=== PATIENT | female | born 1935 ===

== ENCOUNTER 2019-12-15 18:56 | Inpatient (IN) | payer MEDICARE, MEDICAID, OTHER, SELFPAY ==
[2019-12-15 19:07] VITALS: PULSE 120; RESP 20; TEMP 37.2; O2SAT 95
--- NOTE | 2019-12-15 19:21 | DI.RAD.S_ITS ---
PROCEDURE: XR CHEST 1V INDICATIONS: sepsis, respiratory TECHNIQUE: One view of the chest was acquired. COMPARISON: [facility], , CHEST 1 VIEW, 11/20/2017, 7:51. FINDINGS: Surgical changes and devices: Cholecystectomy clips. Lungs and pleura: The lungs are hyperinflated with multifocal patchy right upper lobe alveolar opacities superimposed on diffuse interstitial thickening. Chronic blunting of the right costophrenic angle. No pneumothorax. Mediastinum: Mediastinal contours appear normal. Heart size is normal. Bones and chest wall: No suspicious bony lesions. S-shaped moderate scoliosis. Overlying soft tissues appear unremarkable. IMPRESSION: 1. Findings of chronic interstitial lung disease and multifocal right lung patchy alveolar opacities. 2. There is slight consolidation in the right upper lobe compared to the prior study. Dictated by: Alivia Denson M.D. on 12/15/2019 at 20:32 Approved by: Alivia Denson M.D. on 12/15/2019 at 20:34
[2019-12-15 19:30] VITALS: BP 117/59; PULSE 120; RESP 24; O2SAT 93
[2019-12-15] MEDS: ALBUTEROL/IPRATROPIUM 3 ML AMPUL INH (19:49)
[2019-12-15 19:53] VITALS: PULSE 100; RESP 26; O2SAT 100
--- NOTE | 2019-12-15 19:55 | ED_ITS ---
HPI - SOB/Dyspnea General Chief Complaint: Shortness of Breath/Dyspnea Stated Complaint: difficulty breathing - asthma Time Seen by Provider: 12/15/19 19:10 Source: patient and family Mode of arrival: Wheelchair Limitations: language barrier History of Present Illness HPI Narrative: 84-year-old female nonsmoker with history of asthma presents with her family and a chief complaint of approximately 1 month of worsening respiratory complaints including increased wheezing, shortness of breath cough productive of yellowish sputum and subjective fever and chills. She has had no travel nor exposure to persons of interest for COVID-19. She denies nausea, vomiting or diarrhea. She lives at home with family. Her primary care provider is in [place]. She denies any recent hospitalizations, but was seen at an outside emergency department about 1 month ago. She denies any history of blood clot, cancer or sarcoid. Patient in droplet precautions. Telephonic minute clerk for basic traffic involved, family states this usually doesn't work because she speaks a dialtect of M[place] that is different than the proper [place] used by the translating services. MD Complaint: shortness of breath and cough Onset (ago): day(s) Severity: moderate Consistency/Duration: constant Relieving factors: rest Exacerbating factors: exertion Known history of: asthma Associated symptoms: fever, cough, wheezing and sputum production Treatment prior to arrival: none Related Data Home oxygen amount: none Home Medications Medication Instructions Recorded Confirmed albuterol sulfate [Ventolin HFA] 2 puff INH Q4HP PRN #0 08/19/17 12/16/19 aspirin 81 mg PO QDAY #0 11/20/17 12/16/19 multivitamin [Multiple Vitamins] 1 tab PO QDAY #0 11/20/17 12/16/19 Allergies Allergy/AdvReac Type Severity Reaction Status Date / Time No Known Allergies Allergy Uncoded 01/20/18 12:06 Review of Systems Constitutional Constitutional: Reports chills, Reports fatigue, Reports fever(s), Denies frequent falls, Denies lethargy and Reports weakness Eyes Eyes: Denies change in vision, Denies eye discharge, Denies irritation and Denies loss of vision ENT Ears, Nose, Mouth, and Throat: Denies change in voice, Denies dizziness, Denies neck pain, Denies sore throat and Denies throat swelling Cardiovascular Cardiovascular: Denies chest pain, Denies irregular heart rhythm, Denies lightheadedness, Denies palpitations, Reports dyspnea, Reports dyspnea on exertion and Denies orthopnea Respiratory Respiratory: Reports cough, Reports dyspnea, Reports dyspnea on exertion and Reports wheezing Gastrointestinal Gastrointestinal: Denies abdominal pain, Denies change in bowel habits, Denies diarrhea, Denies nausea and Denies vomiting Genitourinary Genitourinary: Denies hematuria, Denies flank pain, Denies urinary incontinence and Denies urinary urgency Musculoskeletal Musculoskeletal: Denies back pain, Denies muscle weakness, Denies neck pain, Denies numbness and Denies tingling Integumentary/Breasts Skin/Breast: Denies pruritus, Denies erythema, Denies rash and Denies wounds Neurologic Neurologic: Denies behavioral changes, Denies confusion, Denies dizziness, Denies frequent falls, Denies loss of vision, Denies numbness, Denies tingling and Reports weakness Psychiatric Psychiatric: Denies anxiety, Denies behavioral changes, Denies confusion, Denies depression, Denies homicidal ideation and Denies suicidal ideation Endocrine Endocrine: Reports fatigue, Denies flushing and Denies palpitations Hematologic/Lymphatic Hematologic/Lymphatic: Denies easy bruising Allergic/Immunologic Allergic/Immunologic: Denies urticaria, Denies throat swelling and Reports wheezing Patient History Social History Smoking Status: Never smoker Smoking Status: Never smoker alcohol intake frequency: 0-2 drinks per day Substance Use Type: does not use Exam Narrative Exam Narrative: GENERAL: [84] year old patient appears stated age. Well-nou rished, well-developed patient, in mild distress. Frequent cough, increased work of breathing HEAD: Atraumatic. Normocephalic. EYES: Pupils equal round and reactive. Extraocular motions intact. No scleral icterus. No injection or drainage. ENT: Nose without bleeding, purulent drainage. Throat without erythema, tonsillar hypertrophy or exudate. Airway patent. NECK: Trachea midline. Non tender CARDIOVASCULAR: Regular rate and rhythm without murmurs, gallops, or rubs. RESPIRATORY: Decreased breath sounds bilaterally with prolonged expiratory phase, bronchospastic cough no obvious rales or rhonchi GASTROINTESTINAL: Abdomen soft, non-tender, nondistended. EXTREMITIES: No edema or joint tenderness. BACK: Nontender without deformity or crepitance. No flank tenderness. NEURO: AOx3. SKIN: No rash or erythema of visible areas Initial Vital Signs Initial Vital Signs: Vital Signs Temperature 99 F 12/15/19 19:07 Pulse Rate 120 H 12/15/19 19:07 Respiratory Rate 20 12/15/19 19:07 Pulse Oximetry 95 12/15/19 19:07 Course Course Course Narrative: I've had extensive discussion (28minutes) at bedside with patient, family, and minute clerk for basic traffic. Patient denies classic risks for PE such as travel, injury, surgeries, cancer, hx of clot. She has lived in the [place] since 1998. 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 Her most recent trip was in 2018. Call to Pulmonary / Critical Care at [facility]. No need for transfer at this time. Not candidate for intervention for PE. Recommends treatment of pneumonia, PE with anticoagulation and recontact if needed. Orders Ordered: ED Orders 12/15/19 19:21 XR chest 1V Stat 12/15/19 20:00 Blood Culture Stat Complete Blood Count AUTO DIFF Stat Comprehensive Metabolic Panel Stat D Dimer Stat Influenza A & B (PCR) Stat Lactate (Lactic Acid) Stat NT-proBNP (BNP-Adult 18+) Stat Procalcitonin Stat Troponin & CK Cardiac Panel Stat 12/15/19 21:19 CT angio chest PE protocol Stat 12/15/19 21:45 Sputum Culture Stat 12/15/19 22:10 Urine Culture Stat Urine Microscopic Stat 12/15/19 22:19 Arterial Blood Gas Stat Acetaminophen (Tylenol) 650 mg PO Q6HR PRN PRN Reason: Fever Albuterol (Ventolin) 2.5 mg INH [id number] PRN PRN Reason: Shortness Of Breath Or Wheezing Albuterol/Ipratropium (Duoneb) 3 ml INH RTBID ELIZABETH Bisacodyl (Dulcolax) 10 mg NM DAILY PRN PRN Reason: Constipation Docusate Sodium (Colace) 100 mg PO BID PRN PRN Reason: Constipation Enoxaparin Sodium (Lovenox) 60 mg SUBCUT BID ELIZABETH Sodium Chloride (Normal Saline 0.9%) 1,000 mls @ 75 mls/hr IV CONT ELIZABETH Azithromycin 500 mg/ Dextrose 250 mls @ 250 mls/hr IV Q24H ELIZABETH Stop: 12/17/19 21:01 Ceftriaxone Sodium/Dextrose (Rocephin) 2 gm in 50 mls @ 100 mls/hr IV Q24H [facility] Magnesium Hydroxide (Milk Of Magnesia) 30 ml PO BID PRN PRN Reason: Heartburn Methylprednisolone (Solu-Medrol 125 Mg Vial) 80 mg IV Q8H [facility] Naloxone HCl (Narcan) 0.2 mg IV Q2MIN PRN PRN Reason: Opiate Reversal Discontinued Medications Albuterol/Ipratropium (Duoneb) 3 ml INH NOW ONE Stop: 12/15/19 19:25 Last Admin: 12/15/19 19:49 Dose: 3 ml Documented by: DAVE Enoxaparin Sodium (Lovenox) 65 mg 1 mg/kg (65 mg) SUBCUT NOW ONE Stop: 12/15/19 22:47 Last Admin: 12/15/19 23:38 Dose: 65 mg Documented by: YOUSIF Sodium Chloride (Normal Saline 0.9%) 1,877.88 mls @ 625.96 mls/hr 30 ml/kg infuse over 3 hr (1877.88 ml) IV NOW ONE Stop: 12/15/19 22:20 Last Infusion: 12/15/19 23:43 Dose: 0 mls/hr Documented by: Admin: 12/15/19 20:17 Dose: 625.96 mls/hr Documented by: YOUSIF Ceftriaxone Sodium/Dextrose (Rocephin) 2 gm in 50 mls @ 100 mls/hr IV NOW ONE Stop: 12/15/19 19:50 Last Infusion: 12/15/19 20:50 Dose: 0 mls/hr Documented by: Admin: 12/15/19 20:18 Dose: 100 mls/hr Documented by: YOUSIF Ceftriaxone Sodium/Dextrose (Rocephin) 1 gm in 50 mls @ 100 mls/hr IV NOW ONE Stop: 12/15/19 21:49 Last Admin: 12/15/19 23:38 Dose: Not Given Documented by: YOUSIF Azithromycin 500 mg/ Dextrose 250 mls @ 250 mls/hr IV NOW ONE Stop: 12/15/19 21:21 Last Infusion: 12/15/19 23:44 Dose: 0 mls/hr Documented by: Admin: 12/15/19 22:25 Dose: 250 mls/hr Documented by: YOUSIF Methylprednisolone (Solu-Medrol 125 Mg Vial) 125 mg IV NOW ONE Stop: 12/15/19 19:25 Last Admin: 12/15/19 20:17 Dose: 125 mg Documented by: YOUSIF Vital Signs Vital signs: Vital Signs - 8 hr 12/15/19 19:07 12/15/19 19:30 12/15/19 19:53 Temperature 99 F Pulse Rate 120 H 120 H 100 H Respiratory Rate 20 24 26 H Blood Pressure [Left Arm] 117/59 L Pulse Oximetry 95 93 100 12/15/19 23:32 12/16/19 00:06 Temperature Pulse Rate 109 H 108 H Respiratory Rate 24 23 Blood Pressure [Left Arm] 114/56 L 114/57 L Pulse Oximetry 94 92 MDM - SOB/Dyspnea Lab Data Result diagrams: 12/15/19 20:00 12/15/19 20:00 Labs: Lab Results 12/15/19 12/15/19 12/15/19 Range/Units 20:00 20:00 20:00 WBC 12.8 H (4.5-11.0) X10^3/uL RBC 3.16 L (4.0-5.2) X10^6/uL Hgb 9.3 L (12.0-16.0) g/dL Hct 27.1 L (36-46) % MCV 85.8 (80-100) fL MCH 29.4 (26-34) PG MCHC 34.2 (30-36) % RDW 14.2 (11.6-14.8) % Plt Count 448 H (150-400) X10^3/uL Neut % (Auto) 57.9 (50-75) % Lymph % (Auto) 21.8 L (25-40) % [place] % (Auto) 14.1 H (3-14) % Eos % (Auto) 5.4 H (2-4) % Baso % (Auto) 0.8 (0-2) % Neut # (Auto) 7400 H (9511-2417) /uL Lymph # (Auto) 2800 (9757-9765) /uL [place] # (Auto) 1800 H (0-900) /uL Eos # (Auto) 700 H (0-450) /uL Baso # (Auto) 100 (0-100) /uL D-Dimer (<230) ng/mL ABG pH (7.35-7.45) ABG pCO2 (35-45) mmHg ABG pO2 (80-100) mmHg ABG HCO3 (22-26) mmol/L ABG Total CO2 (21-31) mmol/L ABG O2 Saturation (95-100) % ABG Base Excess (-2-2) mmol/L FiO2 Sodium 131 L (137-145) mmol/L Potassium 4.0 (3.4-5.1) mmol/L Chloride 94 L (98-107) mmol/L Carbon Dioxide 29 (22-32) mmol/L BUN 32 H (7-17) mg/dL Creatinine 1.40 H (0.52-1.04) mg/dL Estimated GFR 36.0 L (>60) mL/min BUN/Creatinine Ratio 22.9 H (6-22) Glucose 133 H (80-110) mg/dL Lactate (0.7-2.1) mmol/L Calcium 9.1 (8.4-10.2) mg/dL Total Bilirubin 0.2 (0.2-1.3) mg/dL AST 32 (14-36) IU/L ALT 32 (<35) IU/L Alkaline Phosphatase 85 (38-126) U/L Total Creatine Kinase (30-135) U/L CK-MB (CK-2) CK-MB (CK-2) Rel Index Troponin I (0.01-0.034) ng/mL NT-Pro-B Natriuret Pep (<450) pg/mL Total Protein 7.3 (6.3-8.2) g/dL Albumin 3.8 (3.5-5.0) g/dL Globulin 3.5 (1.7-4.1) g/dL Albumin/Globulin Ratio 1.1 (1.0-2.8) Procalcitonin < 0.05 (<0.5) ng/mL Urine RBC (0-5/HPF) Urine WBC (0-5/HPF) Ur Squamous Epith Cells (0-5/HPF) Ur Transition Epith Cell (0-5/HPF) Urine Bacteria (None) Hyaline Casts (None) Ur Culture Indicated? Influenza A (RT-PCR) (NEGATIVE) Influenza B (RT-PCR) (NEGATIVE) 12/15/19 12/15/19 12/15/19 Range/Units 20:00 20:00 20:00 WBC (4.5-11.0) X10^3/uL RBC (4.0-5.2) X10^6/uL Hgb (12.0-16.0) g/dL Hct (36-46) % MCV (80-100) fL MCH (26-34) PG MCHC (30-36) % RDW (11.6-14.8) % Plt Count (150-400) X10^3/uL Neut % (Auto) (50-75) % Lymph % (Auto) (25-40) % [place] % (Auto) (3-14) % Eos % (Auto) (2-4) % Baso % (Auto) (0-2) % Neut # (Auto) (8090-7935) /uL Lymph # (Auto) (1640-6766) /uL [place] # (Auto) (0-900) /uL Eos # (Auto) (0-450) /uL Baso # (Auto) (0-100) /uL D-Dimer 806 H (<230) ng/mL ABG pH (7.35-7.45) ABG pCO2 (35-45) mmHg ABG pO2 (80-100) mmHg ABG HCO3 (22-26) mmol/L ABG Total CO2 (21-31) mmol/L ABG O2 Saturation (95-100) % ABG Base Excess (-2-2) mmol/L FiO2 Sodium (137-145) mmol/L Potassium (3.4-5.1) mmol/L Chloride (98-107) mmol/L Carbon Dioxide (22-32) mmol/L BUN (7-17) mg/dL Creatinine (0.52-1.04) mg/dL Estimated GFR (>60) mL/min BUN/Creatinine Ratio (6-22) Glucose (80-110) mg/dL Lactate 1.1 (0.7-2.1) mmol/L Calcium (8.4-10.2) mg/dL Total Bilirubin (0.2-1.3) mg/dL AST (14-36) IU/L ALT (<35) IU/L Alkaline Phosphatase (38-126) U/L Total Creatine Kinase (30-135) U/L CK-MB (CK-2) CK-MB (CK-2) Rel Index Troponin I (0.01-0.034) ng/mL NT-Pro-B Natriuret Pep (<450) pg/mL Total Protein (6.3-8.2) g/dL Albumin (3.5-5.0) g/dL Globulin (1.7-4.1) g/dL Albumin/Globulin Ratio (1.0-2.8) Procalcitonin (<0.5) ng/mL Urine RBC (0-5/HPF) Urine WBC (0-5/HPF) Ur Squamous Epith Cells (0-5/HPF) Ur Transition Epith Cell (0-5/HPF) Urine Bacteria (None) Hyaline Casts (None) Ur Culture Indicated? Influenza A (RT-PCR) Flu a negative (NEGATIVE) Influenza B (RT-PCR) Flu b negative (NEGATIVE) 12/15/19 12/15/19 12/15/19 Range/Units 20:00 22:10 22:19 WBC (4.5-11.0) X10^3/uL RBC (4.0-5.2) X10^6/uL Hgb (12.0-16.0) g/dL Hct (36-46) % MCV (80-100) fL MCH (26-34) PG MCHC (30-36) % RDW (11.6-14.8) % Plt Count (150-400) X10^3/uL Neut % (Auto) (50-75) % Lymph % (Auto) (25-40) % [place] % (Auto) (3-14) % Eos % (Auto) (2-4) % Baso % (Auto) (0-2) % Neut # (Auto) (6097-4541) /uL Lymph # (Auto) (1101-6516) /uL [place] # (Auto) (0-900) /uL Eos # (Auto) (0-450) /uL Baso # (Auto) (0-100) /uL D-Dimer (<230) ng/mL ABG pH 7.36 (7.35-7.45) ABG pCO2 37.2 (35-45) mmHg ABG pO2 63 L (80-100) mmHg ABG HCO3 21 L (22-26) mmol/L ABG Total CO2 22 (21-31) mmol/L ABG O2 Saturation 91 L (95-100) % ABG Base Excess -5.0 L (-2-2) mmol/L FiO2 21 Sodium (137-145) mmol/L Potassium (3.4-5.1) mmol/L Chloride (98-107) mmol/L Carbon Dioxide (22-32) mmol/L BUN (7-17) mg/dL Creatinine (0.52-1.04) mg/dL Estimated GFR (>60) mL/min BUN/Creatinine Ratio (6-22) Glucose (80-110) mg/dL Lactate (0.7-2.1) mmol/L Calcium (8.4-10.2) mg/dL Total Bilirubin (0.2-1.3) mg/dL AST (14-36) IU/L ALT (<35) IU/L Alkaline Phosphatase (38-126) U/L Total Creatine Kinase 25 L (30-135) U/L CK-MB (CK-2) TNP CK-MB (CK-2) Rel Index TNP Troponin I 0.020 (0.01-0.034) ng/mL NT-Pro-B Natriuret Pep 501 H (<450) pg/mL Total Protein (6.3-8.2) g/dL Albumin (3.5-5.0) g/dL Globulin (1.7-4.1) g/dL Albumin/Globulin Ratio (1.0-2.8) Procalcitonin (<0.5) ng/mL Urine RBC 0-1/hpf (0-5/HPF) Urine WBC 1-5/hpf (0-5/HPF) Ur Squamous Epith Cells 0-1 /hpf (0-5/HPF) Ur Transition Epith Cell 0-1/hpf (0-5/HPF) Urine Bacteria Occasional (0-1) (None) Hyaline Casts 5-10/lpf (None) Ur Culture Indicated? Specimen cultured Influenza A (RT-PCR) (NEGATIVE) Influenza B (RT-PCR) (NEGATIVE) Urine Dip Bedside Urine Glucose Negative Bedside Urine Bilirubin - Negative Bedside Urine Ketone - Negative Urine Specific [place] 1.015 Bedside Urine Occult Blood - Negative Bedside Urine pH 6.0 Bedside Urine Protein - Negative Bedside Urine Urobilinogen - Negative Bedside Urine Nitrite - Negative Bedside Urine Leukocytes - Negative Esterase Discharge Plan Departure Patient Disposition: Admitted As Inpatient Clinical Impression: Chronic interstitial lung disease Pulmonary embolism Qualifiers: Pulmonary embolism type: other Chronicity: acute Acute cor pulmonale presence: without acute cor pulmonale Qualified Code(s): I26.99 - Other pulmonary embolism without acute cor pulmonale Sepsis with acute hypoxic respiratory failure Qualifiers: Sepsis type: sepsis due to unspecified organism Severe sepsis shock status: without septic shock Qualified Code(s): A41.9 - Sepsis, unspecified organism Admit Date/Time: 12/16/19 00:34 Admit Provider: Laz Chandra
[2019-12-15 20:15] LABS: Add Manual Diff / Slide Review NO; Basophils Absolute Auto 100 /uL (0-100); Basophils Percent Auto 0.8 % (0-2); Eosinophils Absolute Auto 700 /uL (0-450); Eosinophils Percent Auto 5.4 % (2-4); Hematocrit 27.1 % (36-46); Hemoglobin 9.3 g/dL (12.0-16.0); Lymphocytes Absolute Auto 2800 /uL (1100-4500); Lymphocytes Percent Auto 21.8 % (25-40); Mean Corpuscular HGB Conc 34.2 % (30-36); Mean Corpuscular Hemoglobin 29.4 PG (26-34); Mean Corpuscular Volume 85.8 fL (80-100); Monocytes Absolute Auto 1800 /uL (0-900); Monocytes Percent Auto 14.1 % (3-14); Neutrophils Absolute Auto 7400 /uL (1500-7000); Neutrophils Percent Auto 57.9 % (50-75); Platelet Count 448 X10^3/uL (150-400); Red Blood Cell Count 3.16 X10^6/uL (4.0-5.2); Red Cell Distribution Width 14.2 % (11.6-14.8); White Blood Cell Count 12.8 X10^3/uL (4.5-11.0)
[2019-12-15] MEDS: methylPREDNISolone 125 MG/2 ML VIAL IV (20:17)
[2019-12-15] MEDS: SODIUM CHLORIDE 0.9% 1,877.88 ML 625.96 ML IV (20:17)
[2019-12-15] MEDS: CEFTRIAXONE 2 GM/50 ML FROZ.PIGGY IV (20:18)
[2019-12-15 20:25] LABS: D Dimer 806 ng/mL (<230)
[2019-12-15 20:30] LABS: Lactate (Lactic Acid) 1.1 mmol/L (0.7-2.1)
[2019-12-15 20:31] LABS: Alanine Aminotransferase 32 IU/L (<35); Albumin 3.8 g/dL (3.5-5.0); Albumin Globulin Ratio 1.1 (1.0-2.8); Alkaline Phosphatase 85 U/L (38-126); Aspartate Aminotransferase 32 IU/L (14-36); BUN Creatinine Ratio 22.9 (6-22); Bilirubin Total 0.2 mg/dL (0.2-1.3); Blood Urea Nitrogen 32 mg/dL (7-17); Calcium 9.1 mg/dL (8.4-10.2); Carbon Dioxide 29 mmol/L (22-32); Chloride 94 mmol/L (98-107); Globulin 3.5 g/dL (1.7-4.1); Glucose 133 mg/dL (80-110); HEMOLYSIS < 15 (0-50); Sodium 131 mmol/L (137-145); Total Protein 7.3 g/dL (6.3-8.2)
[2019-12-15 20:45] LABS: Influenza A - CEPHEID Flu A NEGATIVE (NEGATIVE); Influenza B - CEPHEID Flu B NEGATIVE (NEGATIVE)
[2019-12-15 20:48] LABS: Procalcitonin < 0.05 ng/mL (<0.5)
--- NOTE | 2019-12-15 21:19 | DI.CT.S_ITS ---
PROCEDURE: CT ANGIO CHEST PE PROTOCOL INDICATIONS: SOB, dyspnea, cough, critical D dimer TECHNIQUE: After the administration of intravenous contrast, 2 mm thick sections acquired from the pulmonary apices to the posterior costophrenic angles. 3-dimensional maximum intensity projection (MIP) coronal and sagittal reformats were then acquired through the thorax. For radiation dose reduction, the following was used: automated exposure control, adjustment of mA and/or kV according to patient size. COMPARISON: None. FINDINGS: Image quality: Excellent. Pulmonary arteries: Pulmonary arteries are normal in size. There is acute filling defect in the right lateral basal segment pulmonary artery extending into subsegmental branches. Additionally, filling defect within the left anterior basal segmental pulmonary artery also extending into subsegmental branches is present. Overall quadrant and is estimated to be a mild to moderate. Lungs and pleura: Multifocal bilateral patchy, peripheral irregular alveolar opacities, traction bronchiectasis, superimposed on a background of diffuse reticulation is present. Subpleural honeycombing at the right middle and lower lobe periphery at the lung base. Irregular reticulonodular pattern with small consolidation in the lingula and left posterior lung base. No pleural effusion or pneumothorax. Mediastinum: Normal heart size with mild coronary and mitral annular calcification. No intraventricular septal bowing. Small pericardial effusion present. There is bulky mediastinal adenopathy, some of which demonstrates coarse calcifications. Calcified and noncalcified bilateral hilar adenopathy, left more extensive than right. Small to moderate size hiatal hernia present. Bones and chest wall: No suspicious bony lesions. Ribs and thoracic spine appear intact throughout. Thyroid gland is normal. No axillary or supraclavicular adenopathy. Abdomen: Visualized upper abdominal solid organs appear normal in the early arterial phase of enhancement. IMPRESSION: 1. Bilateral pulmonary emboli superimposed on a background of chronic appearing interstitial lung disease. Overall clot burden is mild to moderate. There is no evidence of recurrent strain. 2. Diffuse interstitial lung disease with the appearance of sarcoidosis or usual interstitial pneumonitis. 3. Bulky mediastinal and hilar adenopathy, some with calcification this supports the possibility of sarcoidosis. Other exposures to granulomatous disease, fungal disease, or asbestosis may have this appearance. 4. Moderate size hiatal hernia. 5. Small pericardial effusion. 6. Discussed with Dr. Beck in the emergency room at 2245 hrs. Dictated by: Alivia Denson M.D. on 12/15/2019 at 22:36 Approved by: Alivia Denson M.D. on 12/15/2019 at 22:52
[2019-12-15 21:38] LABS: Creatine Kinase 25 U/L (30-135)
[2019-12-15 21:51] LABS: NT-proBNP (BNP-Adult 18+) 501 pg/mL (<450)
[2019-12-15] MEDS: AZITHROMYCIN 500 MG in DEXTROSE 5% IN WATER 250 ML IV (22:25)
[2019-12-15 22:26] LABS: HCO3 ABG 21 mmol/L (22-26); PCO2 ABG 37.2 mmHg (35-45); PO2 ABG 63 mmHg (80-100); pH ABG 7.36 (7.35-7.45)
[2019-12-15 22:27] LABS: Fractionated Inspired Oxygen 21; Oxygen Saturation ABG 91 % (95-100); TCO2 ABG 22 mmol/L (21-31)
[2019-12-15 22:35] LABS: Bacteria Urine Occasional (0-1); Culture Indicated Urine Specimen Cultured; RBC Urine 0-1/HPF (0-5/HPF); Squamous Epithelial Cell Urine 0-1 /HPF (0-5/HPF); Transitional Epi Cells Urine 0-1/HPF (0-5/HPF); WBC Urine 1-5/HPF (0-5/HPF)
[2019-12-15 22:36] LABS: Hyaline Casts Urine 5-10/LPF
[2019-12-15 23:32] VITALS: BP 114/56; PULSE 109; RESP 24; O2SAT 94
[2019-12-15] MEDS: ENOXAPARIN 100 MG/ML SYRINGE 65 MG SUBCUT (23:38)
[2019-12-16] VITALS (20 sets, daily range): BP systolic 83–137; BP diastolic 47–72; PULSE 70–141; RESP 16–33; TEMP 35.8–36.9; O2SAT 91–100; BMI 26.9; BMI 20.4
--- NOTE | 2019-12-16 01:14 | PM.HP.1 ---
History of Present Illness History of Present Illness Date Patient Seen: 12/16/19 Time Patient Seen: 01:30 Chief complaint: difficulty breathing - asthma Narrative: Ms.Surjit Velasquez is an 84-year-old [place] female with a history significant for asthma and a history of having tuberculosis that has been treated and cleared presents to the hospital with progressive shortness of breath. History is difficult due to language barrier, telephonic manager commodities used in the emergency department catheter information which is impeded as the patient speaks a dialtect of Mello, not formal Mello. Family is at bedside to assist with patient interview. Reportedly the patient has had difficulty breathing for 1 month. She was seen 1 month ago at the emergency department at [facility] and released. The patient continued to have shortness of breath that became progressive and associated with chest pain with deep inspiration. She has a positive cough productive for yellow sputum. Family also notes that the patient had an episode nausea vomiting with subjective fevers. On pharmacy review the patient has had multiple episodes of 5 day course of prednisone has had a course of Levaquin and routinely uses ProAir inhaler. The patient has had no travel nor exposure to CoVID-19. The patient denies headaches or dizziness has sustained no falls. She has no nasal congestion or sore throat. She has pleuritic chest pain and had shortness of breath as above. She denies abdominal pain but did have episode of nausea vomiting today. Per family there is no change bowel or bladder habits. Patient is sedentary but no history of cancer, travel or long trips. Upon arrival to the ER the patient is afebrile with temperature of 99? degrees. She has a heart rate of 120 blood pressure 117/59, respirations of 24 saturating 95% on room air. CTs obtained which finds: Acute filling defect in the right lateral basal segment pulmonary artery extending into subsegmental branches, filling defect within the left anterior basal segmental pulmonary artery also extending into subsegmental branches is present. Overall clot burden is described as mild to moderate. Radiologist further notes no ventricular strain, sarcoidosis versus interstitial pneumonitis, bulky mediastinal and hilar adenopathy with calcification, hiatal hernia and small pericardial effusion. Chest x-ray reveals fFindings of chronic interstitial lung disease and multifocal right lung patchy alveolar opacities with slight consolidation in the right upper lobe. On ABG the patient has a pH of 7.36, pCO2 of 37.2, PO2 of 63, bicarb 21 with a base deficit of -5 on 21% FiO2. On laboratory analysis the patient's elevated white count of 12.8, hemoglobin 9.3 and hematocrit of 27.1 and platelets 448. She has a low sodium at 131 with a potassium 4.0, her BUN is 32 and creatinine is 1.4. Her nonfasting glucose is 133. She has elevated D-dimer at 806. Her procalcitonin is negative at 0 point 0 5, lactic acid is 1.1. Her total CK is low 25 with a troponin 0.020 and has mildly elevated proBNP of 501. Your treatment included normal saline per sepsis protocol at 30 mL per kg bolus, azithromycin, ceftriaxone and methylprednisolone. Patient received Lovenox 1 milligram/kilogram. The patient is admitted to the medicine service for bilateral PE, exacerbation of asthma pneumonia. Patient History Medical History (Updated 12/16/19 @ 05:48 by LIVE Armendariz) Asthma (Acute) History of pneumonia (Acute) Surgical History (Updated 12/16/19 @ 05:48 by LIVE Armendariz) History of cholecystectomy (Acute) Family & Social History Safety & Behavioral: Feels Safe in Current Yes Environment Been Physically Hurt or No Threatened By a Person Tobacco & Substance use: Smoking Status Never smoker alcohol intake frequency 0-2 drinks per day Substance Use Type does not use Comment: The patient lives in a single family home with a multi generation all family and has been for over 50 years. Family history is difficult to obtain however the patient's sister had cancer but unknown type, no family history of diabetes or heart disease. Smoking: The patient has never smoked or used tobacco products. Alcohol: Patient does not consume alcoholic beverages. Substance use: The patient denies recreation pharmaceuticals, herbal or cannabis products. Advanced directives: Patient does not have an formal advanced directive but indicates her desire that she wants to live and will be FULL CODE. She does not designate a single surrogate decision maker but indicates family are her advocates. Meds Home Medications and Allergies Home Medications Medication Instructions Recorded Confirmed Type albuterol sulfate [Ventolin HFA] 2 puff INH Q4HP PRN #0 08/19/17 12/16/19 History aspirin 81 mg PO QDAY #0 11/20/17 12/16/19 History multivitamin [Multiple Vitamins] 1 tab PO QDAY #0 11/20/17 12/16/19 History Allergies Allergy/AdvReac Type Severity Reaction Status Date / Time No Known Allergies Allergy Uncoded 01/20/18 12:06 Review of Systems Review of Systems ROS: Yes All systems reviewed with the patient and are negative except as otherwise documented Exam Vital Signs (past 8 hours): - 12/15/19 19:07 12/15/19 19:30 12/15/19 19:53 Temperature 99 F Pulse Rate 120 H 120 H 100 H Respiratory Rate 20 24 26 H Blood Pressure [Left Arm] 117/59 L Pulse Oximetry 95 93 100 12/15/19 23:32 12/16/19 00:06 Temperature Pulse Rate 109 H 108 H Respiratory Rate 24 23 Blood Pressure [Left Arm] 114/56 L 114/57 L Pulse Oximetry 94 92 Oxygen Delivery Method Room Air Narrative Exam Narrative: GENERAL APPEARANCE: well developed, frail-appearing 84-year-old female in no acute distress. HEENT: Normocephalic, PERRLA, conjunctiva clear, sclerae are anicteric, no rhinorrhea, mucous membranes are moist. NECK/THYROID: neck supple, no JVD, no thyromegaly, trachea midline. LYMPH NODES: no cervical or supraclavicular lymphadenopathy. SKIN: [place], warm and dry, no visible lesions, rashes, ulcerations or petechiae. HEART: regular rate and rhythm, S1-S2, subtle systolic murmur, no rubs or gallops, brisk capillary refill, 1+ bilateral lower extremity edema LUNGS: Patient with right upper inspiratory expiratory wheezes, left expiratory wheezes, central coarseness clearing with cough and right basilar crackles, marked wheezing with cough CHEST: Symmetrical movement, no accessory muscle use, shallow tidal volume. ABDOMEN: Soft, dull to percussion, no abdominal tenderness, no guarding or peritoneal signs, no organomegaly, active bowel tones. BACK: Normal curvature, nontender to palpation, no CVA tenderness on percussion EXTREMITIES: moves all extremities, strength is 5/5 and symmetrical, no arm or calf tenderness, negative Echevarria sign.. NEUROLOGIC: AAO x4, no focal neurologic deficits, cranial nerves II-XII grossly intact, decreased sensation bilateral feet, hearing grossly normal to speech. PSYCH: Cooperative, stable behavior Objective Labs Result Diagrams: 12/15/19 20:00 12/15/19 20:00 Labs: Laboratory Results - last 24 hr 12/15/19 12/15/19 12/15/19 20:00 20:00 20:00 WBC 12.8 H RBC 3.16 L Hgb 9.3 L Hct 27.1 L MCV 85.8 MCH 29.4 MCHC 34.2 RDW 14.2 Plt Count 448 H Neut % (Auto) 57.9 Lymph % (Auto) 21.8 L Chambers % (Auto) 14.1 H Eos % (Auto) 5.4 H Baso % (Auto) 0.8 Neut # (Auto) 7400 H Lymph # (Auto) 2800 Chambers # (Auto) 1800 H Eos # (Auto) 700 H Baso # (Auto) 100 D-Dimer ABG pH ABG pCO2 ABG pO2 ABG HCO3 ABG Total CO2 ABG O2 Saturation ABG Base Excess FiO2 Sodium 131 L Potassium 4.0 Chloride 94 L Carbon Dioxide 29 BUN 32 H Creatinine 1.40 H Estimated GFR 36.0 L BUN/Creatinine Ratio 22.9 H Glucose 133 H Lactate Calcium 9.1 Total Bilirubin 0.2 AST 32 ALT 32 Alkaline Phosphatase 85 Total Creatine Kinase CK-MB (CK-2) CK-MB (CK-2) Rel Index Troponin I NT-Pro-B Natriuret Pep Total Protein 7.3 Albumin 3.8 Globulin 3.5 Albumin/Globulin Ratio 1.1 Procalcitonin < 0.05 Urine RBC Urine WBC Ur Squamous Epith Cells Ur Transition Epith Cell Urine Bacteria Hyaline Casts Ur Culture Indicated? Influenza A (RT-PCR) Influenza B (RT-PCR) 12/15/19 12/15/19 12/15/19 20:00 20:00 20:00 WBC RBC Hgb Hct MCV MCH MCHC RDW Plt Count Neut % (Auto) Lymph % (Auto) Chambers % (Auto) Eos % (Auto) Baso % (Auto) Neut # (Auto) Lymph # (Auto) Chambers # (Auto) Eos # (Auto) Baso # (Auto) D-Dimer 806 H ABG pH ABG pCO2 ABG pO2 ABG HCO3 ABG Total CO2 ABG O2 Saturation ABG Base Excess FiO2 Sodium Potassium Chloride Carbon Dioxide BUN Creatinine Estimated GFR BUN/Creatinine Ratio Glucose Lactate 1.1 Calcium Total Bilirubin AST ALT Alkaline Phosphatase Total Creatine Kinase CK-MB (CK-2) CK-MB (CK-2) Rel Index Troponin I NT-Pro-B Natriuret Pep Total Protein Albumin Globulin Albumin/Globulin Ratio Procalcitonin Urine RBC Urine WBC Ur Squamous Epith Cells Ur Transition Epith Cell Urine Bacteria Hyaline Casts Ur Culture Indicated? Influenza A (RT-PCR) Flu a negative Influenza B (RT-PCR) Flu b negative 12/15/19 12/15/19 12/15/19 20:00 22:10 22:19 WBC RBC Hgb Hct MCV MCH MCHC RDW Plt Count Neut % (Auto) Lymph % (Auto) Chambers % (Auto) Eos % (Auto) Baso % (Auto) Neut # (Auto) Lymph # (Auto) Chambers # (Auto) Eos # (Auto) Baso # (Auto) D-Dimer ABG pH 7.36 ABG pCO2 37.2 ABG pO2 63 L ABG HCO3 21 L ABG Total CO2 22 ABG O2 Saturation 91 L ABG Base Excess -5.0 L FiO2 21 Sodium Potassium Chloride Carbon Dioxide BUN Creatinine Estimated GFR BUN/Creatinine Ratio Glucose Lactate Calcium Total Bilirubin AST ALT Alkaline Phosphatase Total Creatine Kinase 25 L CK-MB (CK-2) TNP CK-MB (CK-2) Rel Index TNP Troponin I 0.020 NT-Pro-B Natriuret Pep 501 H Total Protein Albumin Globulin Albumin/Globulin Ratio Procalcitonin Urine RBC 0-1/hpf Urine WBC 1-5/hpf Ur Squamous Epith Cells 0-1 /hpf Ur Transition Epith Cell 0-1/hpf Urine Bacteria Occasional (0-1) Hyaline Casts 5-10/lpf Ur Culture Indicated? Specimen cultured Influenza A (RT-PCR) Influenza B (RT-PCR) Assessment & Plan Assessment & Plan narrative: This is an 84-year-old female patient who presents to the ER 1 month post treatment for pneumonia with progressively worsening dyspnea accompanied by development of chest pain that is pleuritic in character in the setting chronic asthma. 1. Acute respiratory failure, present on admission, active. -On admission the ER the patient has respiratory rate 24 saturating 95% on room air which dropped to 89% during her ER stay -ABG: PH 7.36, pCO2 37.2, PO2 is 63, bicarb 21, base excess -5 on 21% FiO2. PF ratio was 300. -Operative area is multifactorial: Bilateral pulmonary emboli Right lung pneumonia. Asthma exacerbation. Interstitial lung disease on imaging, sarcoidosis versus pneumonitis with history of TB in the past -Patient has improved with nebulizer treatments and methylprednisolone 125 mg. 2. Acute bilateral pulmonary emboli, present on admission, active -Patient does not present with significant risk factors other than sedentary for development of PE. She has no extremity swelling or pain. -She reports bilateral chest pain which is pleuritic in character with associated cough. -Elevated D-dimer at 8:06 a.m., pro BNP mildly elevated at 501, troponin is negative at 0.020 in the setting of an elevated creatinine of 1.4. -CTA finds bilateral segmental and subsegmental filling defects, no evidence of ventricular strain. -The patient is started on Lovenox 1 milligram/kilogram twice daily 1st dose is given in the emergency department. -Ordered echocardiogram. -No source of emboli are identified, ordered PT/INR and PTT off ER admission labs for baseline coags and liver panel. - monitor for signs or symptoms of bleeding. 3. Right-sided pneumonia, acute, present on admission, active -Patient treated 1 month ago at [facility] and discharged home. -Patient has had productive cough for yellow sputum, subjective fevers, breath sounds with RUL wheezing, central coarseness and right basilar crackles. -Chest x-ray finds right upper lobe consolidation with right patchy traits. -Elevated white count of 12.8, procalcitonin less than 0.05, lactic acid 1.1. -Patient started on azithromycin 500 mg IV daily for 3 days. -Patient started on ceftriaxone 2 g IV daily. -Will monitor blood count and procalcitonin. 4. Asthma exacerbation, present on admission, active -The patient has long history of asthma using ProAir inhaler. She has required steroid therapy in the recent past. -Patient with inspiratory expiratory wheezing right upper lobe and left expiratory wheezing. -The patient received methylprednisolone 125 mg in the ER. Continue methylprednisolone 80 mg every 8 hours. -Will treat underlying infection as above. 5. Interstitial lung disease, sarcoidosis versus pneumonitis, present on admission, active -New finding of lung disease with notation on CT exam of bulky mediastinal and hilar adenopathy with calcification raising concern for sarcoidosis. -The patient has previously received multiple courses of prednisone 20 mg 5 days. Patient received methylprednisolone 125 mg in the ER to continue 80 mg daily. 6. Acute kidney injury, present on admission, active. -Elevated serum creatinine of 1.4 with BUN of 32. Patient's baseline is 0.8 last evaluated on 11/22/2019. -Patient does have trace edema lower extremities, will gently rehydrate the patient with normal saline 75 cc/hour and evaluate response. -Monitor renal function. VTE prophylaxis: SCDs, therapeutic Lovenox. IV fluid: Normal saline 75 cc/hour. Diet: Vegetarian The patient is admitted to the hospital for further evaluation and treatment of multifactorial respiratory failure. The patient is admitted as an inpatient with expected length of stay to be greater than 2 midnights. Scores GCS [place] coma scale eye opening: Spontaneous Malia coma scale verbal response: Orientated [place] coma scale motor response: Obey commands Malia coma scale total score: 15
[2019-12-16 02:05] LABS: INR 1.1 (0.9-1.3); Prothrombin Time 12.2 SECONDS (10.1-12.7)
[2019-12-16 02:07] LABS: PTT Partial Thromboplastin Tim 22 SECONDS (26.4-36.2)
[2019-12-16 02:08] LABS: Magnesium 2.3 mg/dL (1.6-2.3)
[2019-12-16] MEDS: SODIUM CHLORIDE 0.9% 1,000 ML 75 ML IV (03:00)
[2019-12-16 03:56] LABS: Adenovirus Not Detected (Not Detect); Coronavirus 229E Not Detected (Not Detect); Coronavirus HKU1 Not Detected (Not Detect); Coronavirus NL 63 Not Detected (Not Detect); Coronavirus OC43 Not Detected (Not Detect); Human Metapneumovirus Not Detected (Not Detect); Human Rhinovirus/Enterovirus Not Detected (Not Detect); Influenza A Not Detected (Not Detect); Influenza B Not Detected (Not Detect); Parainfluenza Virus 1 Not Detected (Not Detect)
[2019-12-16 03:57] LABS: Bordetella pertussis Not Detected (Not Detect); Chlamydophila pneumoniae Not Detected (Not Detect); Mycoplasma pneumoniae Not Detected (Not Detect); Parainfluenza Virus 2 Not Detected (Not Detect); Parainfluenza Virus 3 Not Detected (Not Detect); Parainfluenza Virus 4 Not Detected (Not Detect); Respiratory Syncytial Virus Not Detected (Not Detect)
[2019-12-16 05:12] LABS: BUN Creatinine Ratio 20.9 (6-22); Blood Urea Nitrogen 23 mg/dL (7-17); Carbon Dioxide 23 mmol/L (22-32); Chloride 99 mmol/L (98-107); Estimated Glomerular Filt Rate 47.6 mL/min (>60); Glucose 211 mg/dL (80-110); HEMOLYSIS < 15 (0-50); Sodium 130 mmol/L (137-145)
[2019-12-16 05:15] LABS: Add Manual Diff / Slide Review NO; Basophils Absolute Auto 0 /uL (0-100); Basophils Percent Auto 0.3 % (0-2); Eosinophils Absolute Auto 0 /uL (0-450); Hemoglobin 7.9 g/dL (12.0-16.0); Lymphocytes Absolute Auto 1500 /uL (1100-4500); Lymphocytes Percent Auto 21.1 % (25-40); Mean Corpuscular HGB Conc 33.3 % (30-36); Mean Corpuscular Hemoglobin 29.4 PG (26-34); Mean Corpuscular Volume 88.2 fL (80-100); Monocytes Absolute Auto 200 /uL (0-900); Monocytes Percent Auto 2.8 % (3-14); Neutrophils Absolute Auto 5300 /uL (1500-7000); Neutrophils Percent Auto 75.8 % (50-75); Platelet Count 366 X10^3/uL (150-400); Red Blood Cell Count 2.69 X10^6/uL (4.0-5.2); Red Cell Distribution Width 14.3 % (11.6-14.8)
[2019-12-16 05:20] LABS: Hematocrit 23.7 % (36-46)
--- NOTE | 2019-12-16 05:23 | DI.ECHO.S_ITS ---
[facility] +---------+ : : [address] : : : : [id number] : : : : Phone: [phone]+ Echocardiogram Report + + :Name: CHRISTOPHER SANDY Study Date: 12/16/2019 Height: 60 in : :[facility] Weight: 104 lb : : Gender: Female BSA: 1.4 m2 : :: 1935 Age: 84 yrs BP: 130/72 mmHg: :Reason For Study: BILATERAL PE : : Performed By: Gunner Martin : :Referring: NATHANAEL MARINELLI : + + Interpretation Summary The ejection fraction is estimated to be 65-70%. There is moderate tricuspid regurgitation. The right ventricular systolic pressure is estimated to be at least 43 mmHg based on an estimated right atrial pressure of 3 mm Hg. Procedure: A two-dimensional transthoracic echocardiogram with color flow and Doppler was performed. The study quality was technically adequate. There is no prior echocardiogram noted for this patient. The patient was in normal sinus rhythm during the exam. The patient was tachycardic with a heart rate of 102-155 beats per minute. Left Ventricle: The left ventricle is normal in size. There is normal left ventricular wall thickness. The ejection fraction is estimated to be 65-70%. There are no focal wall motion abnormalities. Right Ventricle: The right ventricle is normal in size and function. Atria: Both atria are normal in size. The interatrial septum is intact with no evidence for an atrial septal defect. Mitral Valve: There is mild mitral annular calcification. The mitral valve leaflets are mildly calcified. There is no mitral regurgitation. Aortic Valve: The aortic valve is normal in structure and function. There is no hemodynamically significant valvular aortic stenosis. No aortic regurgitation is present. Tricuspid Valve: The tricuspid valve is normal in structure and function. There is moderate tricuspid regurgitation. The right ventricular systolic pressure is estimated to be at least 43 mmHg based on an estimated right atrial pressure of 3 mm Hg. Pulmonic Valve: The pulmonic valve is not well visualized. Great Vessels: The aortic root is normal size. The dimensions of the ascending aorta are normal. The pulmonary artery is normal size. The IVC is of normal diameter and collapses greater than 50% with a sniff. This suggests a low right atrial pressure of 3 mm Hg. Pericardium/ Pleura There is no pericardial effusion. There is no pleural effusion. MMode/2D Measurements & Calculations LVIDd: 3.4 cm LVOT diam: 1.7 cm LVIDs: 1.8 cm Ao root diam: 2.5 cm FS: 47.5 % Aortic Jxn: 1.8 cm EPSS: 0.53 cm asc Aorta Diam: 2.8 cm IVSd: 0.68 cm LVPWd: 0.73 cm LV florian. diameter/BSA (cm/m^2): 2.4 LV sys. diameter/BSA (cm/m^2): 1.2 LA dimension: 3.0 cm RA long axis: 4.0 cm LA A2 area: 15.7 cm2 RA area: 12.4 cm2 LA A4 area: 15.0 cm2 RA vol: 32.4 ml LA length (vol): 4.5 cm RA : 22.9 ml/m2 LA vol: 44.5 ml IVC diam: 1.4 cm LA vol index: 31.5 ml/m2 RVD1 (basal): 3.7 cm RVD2 (mid): 3.1 cm Doppler Measurements & Calculations Ao V2 max: 192.4 cm/sec LVOT Max Derrek: 126.2 cm/sec Ao V2 mean: 153.5 cm/sec LV V1 max P.4 mmHg Ao max P.8 mmHg LV V1 VTI: 16.3 cm Ao mean P.0 mmHg BOBY(I,D): 1.4 cm2 Ao V2 VTI: 28.7 cm BOBY(V,D): 1.6 cm2 sev ratio: 0.57 BOBY indexed to BSA (cm^2/m^2): 0.97 MV E max derrek: 98.8 cm/sec TR max derrek: 316.2 cm/sec MV A max derrek: 125.2 cm/sec TR max P.1 mmHg MV E/A: 0.79 PA V2 max: 104.0 cm/sec Med Peak E' Derrek: 10.9 cm/sec PA V2 mean: 80.3 cm/sec E/E' med: 9.0 PA mean P.7 mmHg Lat Peak E' Derrek: 11.7 cm/sec PA pr(Accel): 52.5 mmHg E/E' lat: 8.5 E/e' average: 8.7 MV dec time: 0.14 sec SV(LVOT): 39.2 ml Reading Physician:12:52 PM
[2019-12-16] MEDS: methylPREDNISolone 125 MG/2 ML VIAL 80 MG IV ×2 (05:25→14:51)
--- NOTE | 2019-12-16 06:34 | PC.ADMIT ---
[address] Admission Note: The patient,Jos Velasquez,84 y/o, was given written information regarding hospital policies, unit procedures and contact persons. Patient's smoking status: Never smoker. Vital Signs - 8 hr 12/15/19 23:32 12/16/19 00:06 12/16/19 02:06 Temperature 98.2 F Pulse Rate 109 H 108 H 113 H Respiratory Rate 24 23 20 Blood Pressure 119/55 L Blood Pressure [Left Arm] 114/56 L 114/57 L Pulse Oximetry 94 92 97 12/16/19 04:30 12/16/19 05:30 Temperature 96.5 F L Pulse Rate 93 H 91 H Respiratory Rate 18 23 Blood Pressure 92/54 L 105/56 L Blood Pressure [Left Arm] Pulse Oximetry 100 98 Patient admitted to ICU at 0140, A/Ox3, does not speak Uruguayan but Uruguayan speaking grand-children with her. Fatigued, slightly nervous, and short of breath with exertion. Initially placed in Droplet Precautions, removed per Amauri MANCINI. ST/SA on monitor, rate 90s-140 initially, then decreased as patient relaxed. Afebrile, BP stable, see vital trends, RA SpO2 >94% while awake, desats to 80s asleep, placed her on 2L NC. C/O rib pain when coughing, declined offer of Tylenol. Patient is vegetarian and prefers food and drink warm.
[2019-12-16] MEDS: ALBUTEROL/IPRATROPIUM 3 ML AMPUL INH ×2 (07:41→21:12)
[2019-12-16] MEDS: ENOXAPARIN 60 MG/0.6 ML SYRINGE SUBCUT (09:40)
--- NOTE | 2019-12-16 12:31 | CM.DANOTE ---
Discharge Planning/Care Management DCP: assessment: case received and discussed in Team Rounds. EMR reviewed. Met now with pt and her granddaughter Edis Mauro, at bedside. Introduced self and role. Pt was found sitting up in bed, eating a large lunch, appeared comfortable. She communicates in a dialect of Mello..relies on her family members to speak for her. Discussion with Edis proceeded as pt ate lunch. Pt admitted early this morning to care of hospitalist team. H&P completed by LIVE Chandra and Dr. Echevarria is now following pt today. Payer: Coordinated care/Medicaid PCP: Dr. Enzo Randhawa explains that her sister Luis Fernando Mauro is pt's primary caregiver but she is currently in [place] until 12/20. Pt has a large extended family who care for pt and her 04/05. When pt is feeling well she is up independently in her home, using no assistive device. She does not use home o2 but she does have a nebulizer and uses this on a prn basis. She also uses inhalers. Edis says family help her with these things. P: likely home when stable for same. Will be following to assist with any d/c needs that may arise. CM Discharge Assessment Start: 12/16/19 12:28 Freq: Status: Active Protocol: Document 12/16/19 12:28 ITV (Rec: 12/16/19 12:31 ITV [id number]) Discharge Planning Assessment Advance Directives? No Advance Directives on File No History Provided By Family Member,Medical Record Has Patient been admitted in last 30 No days? Prior Living Arrangements Apartment/Condo Household Members family Comment pt lives with her who also requires care. Pt has extended family in the area and she and her are never left unattended. Whiteboard Updated in Patient Room with Yes name and ext. # of Inside Sales Representative Review Status In Process
[2019-12-16] MEDS: polyethylene glycoL 3350 17 GM POWD.PACK PO (15:39)
[2019-12-16] MEDS: NITROGLYCERIN 0.3 MG SL TAB 0.4 MG SL ×2 (16:20→16:25)
--- NOTE | 2019-12-16 16:35 | PC.NURSE ---
Addendum entered by Starla Calloway R.N. 12/16/19 22:33: 2200- No further chest discomfort since heart rate controlled. Triponins are trending up. H/H is trending down. Type and cross done. Patient changed to ICU status. Travis at bedside to assist with translation. Patient metoprolol held for low BP. Will monitor. Addendum entered by Starla Calloway R.N. 12/16/19 17:53: 1753- Patient triponin slightly higher Dr. Echevarria aware. Orders rec. Will monitor. Addendum entered by Starla Calloway R.N. 12/16/19 16:57: 1655- Maalox po given. Patient reports chest pain 1-2. Bp remains soft at 93/62. Patient is alert and responding. 02 is on at 2l cannula. Heart rate is in/out of AFiB/RVR rate as high as 155. Patient is not diaphoretic. Will monitor. Original Note: 1615- Event note. Patient in AFib/RVR with rates up to 155. Patient states she has chest discomfort, mid-sternal radiating to her neck. BP stable. Dr. Echevarria notified. 1620- NTG .4mg sl given, patient reported significant reduction of pain. 1625- NTG .4mg sl repeated for continued chest pain. Patient reports pain now under her left breast, mid-sternal and into her neck. Pain reduced after second nitro but BP to low to repeat. 1640- Dr. Echevarria updated on patient condition waiting on labs. Will monitor.
[2019-12-16 16:41] LABS: Add Manual Diff / Slide Review NO; Basophils Absolute Auto 0 /uL (0-100); Basophils Percent Auto 0.1 % (0-2); Eosinophils Absolute Auto 0 /uL (0-450); Hematocrit 22.9 % (36-46); Hemoglobin 7.6 g/dL (12.0-16.0); Lymphocytes Absolute Auto 1800 /uL (1100-4500); Lymphocytes Percent Auto 22.9 % (25-40); Mean Corpuscular HGB Conc 33.2 % (30-36); Mean Corpuscular Hemoglobin 29.3 PG (26-34); Mean Corpuscular Volume 88.1 fL (80-100); Monocytes Absolute Auto 600 /uL (0-900); Monocytes Percent Auto 7.1 % (3-14); Neutrophils Absolute Auto 5500 /uL (1500-7000); Neutrophils Percent Auto 69.9 % (50-75); Platelet Count 375 X10^3/uL (150-400); Red Blood Cell Count 2.59 X10^6/uL (4.0-5.2); Red Cell Distribution Width 14.8 % (11.6-14.8); White Blood Cell Count 7.9 X10^3/uL (4.5-11.0)
[2019-12-16] MEDS: MAG HYDROX/ALUM/SIMETH 30 ML UDC PO (16:50)
[2019-12-16] MEDS: METOPROLOL ER 25 MG TABLET PO (17:50)
[2019-12-16] MEDS: METOPROLOL TARTRATE 5 MG/5 ML INJ IV (17:52)
[2019-12-16] MEDS: ENOXAPARIN 60 MG/0.6 ML SYRINGE 50 MG SUBCUT (21:19)
[2019-12-16] MEDS: AZITHROMYCIN 500 MG in DEXTROSE 5% IN WATER 250 ML IV (21:20)
[2019-12-16 21:34] LABS: Hematocrit 21.3 % (36-46); Hemoglobin 7.2 g/dL (12.0-16.0)
[2019-12-16 21:57] LABS: Troponin I 0.052 ng/mL (0.01-0.034)
[2019-12-16] MEDS: CEFTRIAXONE 2 GM/50 ML FROZ.PIGGY IV (22:53)
[2019-12-16] MEDS: SODIUM CHLORIDE 0.9% 250 ML 500 ML IV (23:43)
[2019-12-17] VITALS (15 sets, daily range): BP systolic 97–135; BP diastolic 50–72; PULSE 67–124; RESP 17–27; TEMP 35.8–37.1; O2SAT 95–100
[2019-12-17] MEDS: PANTOPRAZOLE 20 MG TABLET PO (06:08)
[2019-12-17 09:10] LABS: Troponin I 0.049 ng/mL (0.01-0.034)
--- NOTE | 2019-12-17 09:39 | PC.NURSE ---
Addendum entered by Sonia Cha R.N. 12/17/19 14:15: Pt reports not tolerating Pred well this am, flushed, wired Update to Dr Stone order is d/c'd. Addendum entered by Sonia Cha R.N. 12/17/19 14:03: Pt has reported improved HR, denies CP or pressure at rest, does note SOB with exertion, ambulated into BR, It is taking a lot to recover, catch her breath per sales professional bilingual. Spo2 96> OT into do eval, and Pt may not need at D/c will assess PT after lunch. Original Note: Am shift Pt is A/o, but speaking through family member, who offers assistance with translation, as Pt's dialect is not one we have on language line. Pt states per jboss developer, This is working out fine Reports epigastric pain with swallowing. Notified Dr Stone of findings and Orders obtained. EKG done and Cough suppression provided. PT OT eval ordered.
[2019-12-17] MEDS: ALBUTEROL/IPRATROPIUM 3 ML AMPUL INH ×2 (10:03→18:05)
[2019-12-17] MEDS: BENZONATATE 100 MG CAPSULE PO ×2 (10:17→19:52)
[2019-12-17] MEDS: predniSONE 20 MG TABLET 40 MG PO (10:18)
[2019-12-17] MEDS: ENOXAPARIN 60 MG/0.6 ML SYRINGE 50 MG SUBCUT ×2 (10:18→20:49)
[2019-12-17 11:34] LABS: Add Manual Diff / Slide Review NO; Basophils Absolute Auto 0 /uL (0-100); Basophils Percent Auto 0.1 % (0-2); Eosinophils Absolute Auto 0 /uL (0-450); Hematocrit 33.8 % (36-46); Hemoglobin 11.1 g/dL (12.0-16.0); Lymphocytes Absolute Auto 2900 /uL (1100-4500); Lymphocytes Percent Auto 23.7 % (25-40); Mean Corpuscular HGB Conc 32.9 % (30-36); Mean Corpuscular Hemoglobin 28.4 PG (26-34); Mean Corpuscular Volume 86.4 fL (80-100); Monocytes Absolute Auto 1200 /uL (0-900); Neutrophils Absolute Auto 8000 /uL (1500-7000); Neutrophils Percent Auto 66.2 % (50-75); Platelet Count 319 X10^3/uL (150-400); Red Blood Cell Count 3.91 X10^6/uL (4.0-5.2); Red Cell Distribution Width 15.1 % (11.6-14.8)
[2019-12-17 11:47] LABS: Alanine Aminotransferase 22 IU/L (<35); Alkaline Phosphatase 69 U/L (38-126); Aspartate Aminotransferase 32 IU/L (14-36); BUN Creatinine Ratio 26.3 (6-22); Bilirubin Total 0.3 mg/dL (0.2-1.3); Bilirubin Unconjugated 0.2 mg/dL (0.0-1.1); Blood Urea Nitrogen 21 mg/dL (7-17); Calcium 8.5 mg/dL (8.4-10.2); Carbon Dioxide 24 mmol/L (22-32); Chloride 101 mmol/L (98-107); Estimated Glomerular Filt Rate > 60.0 mL/min (>60); Globulin 3.1 g/dL (1.7-4.1); Glucose 102 mg/dL (80-110); HEMOLYSIS < 15 (0-50); Magnesium 2.1 mg/dL (1.6-2.3); Sodium 132 mmol/L (137-145); Total Protein 6.1 g/dL (6.3-8.2)
--- NOTE | 2019-12-17 12:04 | P.PN_ITS ---
Subjective Subjective Date Patient Seen: 12/17/19 Interval history: The patient is an 84-year-old female with a history of asthma who was admitted to the hospital with pulmonary embolus, and pneumonia. The patient was given IV hydration. Her hemoglobin was 7.6 on admission and dropped to 7.2. She received 2 units of packed RBCs. There was a report of a dark stool. However this was not guaiac. The patient reports pain with swallowing. She has had no further diarrhea or blood from her bottom. She continues to be somewhat short of breath. She has an intermittent cough. Karina ent is now and rapid atrial fibrillation. Exam Vital Signs (past 8 hours): - 12/17/19 04:19 12/17/19 04:20 12/17/19 06:39 Temperature 98.1 F 98.1 F 98.6 F Pulse Rate 67 67 71 Respiratory Rate 22 22 20 Blood Pressure 111/57 L 111/57 L 124/57 L Pulse Oximetry 100 12/17/19 08:34 12/17/19 10:03 Temperature 97.6 F Pulse Rate 67 122 H Respiratory Rate 17 20 Blood Pressure 135/59 L Pulse Oximetry 100 100 Oxygen Delivery Method Room Air Oxygen Flow Rate 2 Narrative Exam Narrative: Pleasant female resting comfortably with an occasional cough lungs: Decreased breath sounds without rhonchi crackles or wheezes cardiac exam tachycardic irregularly irregular normal S1-S2 with a 2/6 systolic ejection murmur abdomen: Soft nontender nondistended no appreciable hepatosplenomegaly extremities: 1+ pitting edema bilaterally Objective Labs Result Diagrams: 12/17/19 08:35 12/17/19 08:35 Labs: Laboratory Results - last 24 hr 12/16/19 12/16/19 12/16/19 16:26 16:26 21:26 WBC 7.9 RBC 2.59 L Hgb 7.6 L Hct 22.9 L MCV 88.1 MCH 29.3 MCHC 33.2 RDW 14.8 Plt Count 375 Neut % (Auto) 69.9 Lymph % (Auto) 22.9 L [place] % (Auto) 7.1 Eos % (Auto) 0.0 L Baso % (Auto) 0.1 Neut # (Auto) 5500 Lymph # (Auto) 1800 [place] # (Auto) 600 Eos # (Auto) 0 Baso # (Auto) 0 Sodium Potassium Chloride Carbon Dioxide BUN Creatinine Estimated GFR BUN/Creatinine Ratio Glucose Calcium Magnesium Total Bilirubin Conjugated Bilirubin Unconjugated Bilirubin AST ALT Alkaline Phosphatase Troponin I 0.040 H 0.052 H Total Protein Albumin Globulin Albumin/Globulin Ratio Blood Type Antibody Screen Crossmatch 12/16/19 12/16/19 12/17/19 21:26 21:26 08:35 WBC RBC Hgb 7.2 L Hct 21.3 L MCV MCH MCHC RDW Plt Count Neut % (Auto) Lymph % (Auto) [place] % (Auto) Eos % (Auto) Baso % (Auto) Neut # (Auto) Lymph # (Auto) [place] # (Auto) Eos # (Auto) Baso # (Auto) Sodium Potassium Chloride Carbon Dioxide BUN Creatinine Estimated GFR BUN/Creatinine Ratio Glucose Calcium Magnesium Total Bilirubin Conjugated Bilirubin Unconjugated Bilirubin AST ALT Alkaline Phosphatase Troponin I 0.049 H Total Protein Albumin Globulin Albumin/Globulin Ratio Blood Type O Positive Antibody Screen Negative Crossmatch See Detail 12/17/19 12/17/19 08:35 08:35 WBC 12.0 H D RBC 3.91 L Hgb 11.1 L Hct 33.8 L MCV 86.4 MCH 28.4 MCHC 32.9 RDW 15.1 H Plt Count 319 Neut % (Auto) 66.2 Lymph % (Auto) 23.7 L [place] % (Auto) 10.0 Eos % (Auto) 0.0 L Baso % (Auto) 0.1 Neut # (Auto) 8000 H Lymph # (Auto) 2900 [place] # (Auto) 1200 H Eos # (Auto) 0 Baso # (Auto) 0 Sodium 132 L Potassium 4.0 Chloride 101 Carbon Dioxide 24 BUN 21 H Creatinine 0.80 Estimated GFR > 60.0 BUN/Creatinine Ratio 26.3 H Glucose 102 D Calcium 8.5 Magnesium 2.1 Total Bilirubin 0.3 Conjugated Bilirubin 0.0 Unconjugated Bilirubin 0.2 AST 32 ALT 22 Alkaline Phosphatase 69 Troponin I Total Protein 6.1 L Albumin 3.0 L Globulin 3.1 Albumin/Globulin Ratio 1.0 Blood Type Antibody Screen Crossmatch Assessment & Plan Assessment & Plan narrative: impression 1. acute respiratory failure - patient presents with acute pulmonary emboli, currently on Lovenox - patient also has a history of asthma, and pneumonia - patient will remain on Lovenox, will guaiac her stool, and follow closely 2. acute pulmonary emboli, present on admission - CONTINUE LOVENOX, will defer long-term anticoagulation at this time - patient had a dark stool, will guaiac her stool, if there is evidence of guaiac-positive stool will ask GI to evaluate to rule out the possibility of a GI bleed 3. atrial fibrillation, with a rapid ventricular response rate, new - will resume beta-serina 25 b.i.d. for rate control, patient already on Lovenox for PE 4. anemia, present on admission - will obtain guaiacs sto ol to rule out GI bleed - the patient received 2 units of packed RBCs with improvement of blood count - WILL CONTINUE PROTON PUMP INHIBITOR - hiatal hernia noted on CT, patient complains of dysphagia, may require EGD at some point 5. hyponatremia, present on admission will continue to follow 6. acute kidney injury, improved 7. interstitial lung disease, present on admission Quality VTE Deep Vein Thrombosis/Pulmonary Embolism Present on Admission: No
--- NOTE | 2019-12-17 12:52 | OT.IPNOTE ---
Spoke to pt and family member as having to translate for her as pt's 1st language is Mello. Pt states due to IV in her arm not wanting to do any ADL's or OT eval at this time. However, pt states willing to get up later before dinner and when not feeling nauseated. Pt has a supportive family that is able to assist for her needs if needing assist. Pt states prior independent with ADl's and family there to assist shower occasionally, and for all cooking, and medications needs.
[2019-12-17] MEDS: METOPROLOL ER 25 MG TABLET PO ×2 (13:31→20:49)
[2019-12-17] MEDS: PIPERACILLIN-TAZO 3.375 GM/50 ML FROZ.PIGGY IV ×2 (13:31→19:52)
[2019-12-17 14:11] LABS: HEMOLYSIS < 15 (0-50); Iron 65 ug/dL (37-170)
[2019-12-17 14:22] LABS: Percent Iron Saturation 21 % (15-50); Total Iron Binding Capacity 308 ug/dL (265-497); Transferrin 242 mg/dL (206-381)
--- NOTE | 2019-12-17 15:48 | PT.IIE ---
Current Diagnoses Pneumonia, unspecified organism (12/16/19) Surgical History (Last Updated 12/16/19 @ 05:48 by LIVE Armendariz) History of cholecystectomy (Acute) Medical History (Last Updated 12/16/19 @ 05:48 by LIVE Armendariz) Asthma (Acute) History of pneumonia (Acute) Physical Therapy Inpatient Evaluation/Re-Eval M1 PT/OT-IP Prior Functional Status Start: 12/17/19 17:05 Freq: NEEDED Status: Active Protocol: Document 12/17/19 15:48 AB (Rec: 12/17/19 17:22 AB [id number]) Medical Review Prior Functional Status Medical History Reviewed Yes Communication pt speaks sanya only and family in room to assists with translation Mobility and Gait family stated that pt is independent with all mobilities and ambulation without AD Social History Household Members family Living Arrangements Apartment/Condo Number of Floors (Floors) One Floor Number of Stairs To Enter/Railing? no steps to enter Home Environment Standard Height Toilet,Tub/ Shower Home Equipment Front Wheel Walker,Shower Seat without Backrest Additional Social History Comment pt lives with her daughter and grandson and can have 24/7 assist if needed pt uses a bucket/pitcher to shower in the tub and sits on a step stool M2 PT-IP Current Condition Start: 12/17/19 17:05 Freq: NEEDED Status: Active Protocol: Document 12/17/19 15:48 AB (Rec: 12/17/19 17:22 AB [id number]) Physical Therapy Current Condition Current Condition Evaluation Date 12/17/19 Treatment Diagnosis PE; sepsis; PNA; generalized weakness Onset Date 12/16/2019 Precautions Other Precautions O2 sat M3 PT-IP Subjective Start: 12/17/19 17:05 Freq: NEEDED Status: Active Protocol: Document 12/17/19 15:48 AB (Rec: 12/17/19 17:22 AB [id number]) Subjective Physical Therapy Visit Type Type Initial Evaluation Visit Start Time 15:48 Visit Stop Time 16:18 Total Visit Minutes 30 Number of MILLER HELPER Visits 0 Physical Therapy Visit Comments Patient Comments family in room with pt to assists with translation M4 PT-IP Mobility and Gait Start: 12/17/19 17:05 Freq: NEEDED Status: Active Protocol: Document 12/17/19 15:48 AB (Rec: 03/07/20 17:22 AB [id number]) PT-Bed Mobility Assessment Supine to Sit Supine to Sit Standby Assistance,Head of Bed Elevated Sit to Supine Sit to Supine Standby Assistance Scooting Scooting to Edge of Bed Standby Assistance Scooting Up and Down in Bed Standby Assistance PT-Transfer Assessment Sit to and From Stand Sit to and from Stand Standby Assistance Equipment Transfer Assistive Device Gait Belt,Front Wheeled Walker Orthotic/Prosthetic Devices or Brace: No Transfers Transfer Destination Toilet Transfer Technique ambulated using FWW Transfer Ability Level of Assist Contact Guard Assistance, Minimal Assistance,1 Person Assistance,Use of Upper Extremities Comments Mobility Comments pt completed supine to sit SBA with HOB elevated. requested to use the toilet and ambulated using FWW CGA to min A with assist needed to maneuver FWW. pt ambulated out of the toilet using FWW and agreed to do more ambulation in room and completed ~ 40 ft FWW CGA to min A and cues. pt requested to go back to bed afterwards and completed bed mobility SBA . O2 prior to mobility at RA 98% but decreased to 85-88% with mobility but increased to 90-93% after deep breathing and rest. positioned pt on the bed. call light and table placed within reach. Gait Assessment Gait Gait Assistance Required: Contact Guard Assist,Minimum Assistance Distance (Feet) 40 Able to Maintain Weight Bearing Status Yes During Gait Assistive Devices Assistive Device Gait Belt,Front Wheeled Walker Orthotic/Prosthetic Devices or Brace: No Gait Deviations General Gait Pattern Flexed Trunk Factors Limiting Gait Function Factors Limiting Gait Function Decreased Activity Tolerance, Poor Safety Awareness, Respiratory Distress Comments Gait Comments pt can be impulsive and needs min A for maneuvering FWW PT-Balance Assessment Sitting Balance and Reactions Static Sitting Balance Ability Good Dynamic Sitting Balance Ability Good Standing Balance and Reactions Static Standing Balance Ability Fair Dynamic Standing Balance Ability Fair Device Used FWW M5 PT-IP Objective Assessments Start: 12/17/19 17:05 Freq: NEEDED Status: Active Protocol: Document 12/17/19 15:48 AB (Rec: 12/17/19 17:22 AB [id number]) Orientation Orientation/Cognition Level of Alertness Alert Orientation Name Safety Awareness Decreased Safety Awareness Comments pt speaks sanya only Gross Range of Motion Lower Extremity ROM Assessment Within Functional Limits Strength Lower Extremity Strength Assessment Within Functional Limits Muscle Tone Muscle Tone WNL Yes M6 PT-IP Treatment Start: 12/17/19 17:05 Freq: NEEDED Status: Active Protocol: Document 12/17/19 15:48 AB (Rec: 12/17/19 17:22 AB [id number]) Physical Therapy Treatment Education Education Provided Safety M7 PT-IP Assessment and Plan Start: 12/17/19 17:05 Freq: NEEDED Status: Active Protocol: Document 12/17/19 15:48 AB (Rec: 12/17/19 17:22 AB [id number]) PT Summary Assessment and Plan Potential Rehabilitation Potential Fair Status of Condition at Evaluation Evolving Summary Impairments Pain,ROM,Strength,Balance, Coordination,Sensation,Tone, Cognition,Bed Mobility, Transfers,Gait,Activity Tolerance Assessment Summary pt requiring CGA to min A with mobility and family will be able to provide 24/7 assist if needed. O2 sat decreases with mobility affecting functional independence and activity tolerance. will continue to assess progress for safe d/c. Goals Bed Mobility Goal Independent Transfer Goal Independent,Front Wheeled Walker Gait Goal Independent,Front Wheel Walker Gait Distance 150 Other Goals to improve ambulation without AD ~ 200 ft SBA Days to Meet Goals 5 Frequency of Treatment Frequency Of Treatment Once a Day Treatment Plan Physical Therapy Treatment Plan Bed Mobility Training,Transfer Training,Gait Training, Therapeutic Exercise,Balance Retraining,Discharge Planning, Neuromuscular Re-ed, Coordination Retraining Other Recommendations and Next Treatment ambulation using FWW/ without Focus AD when appropriate Recommendations To Nursing Amount of Assist Needed 1 Person Assist Discharge Recommendations PT Discharge Recommendations Home with 24/7 Assist Transportation Needs at Discharge Private Vehicle
[2019-12-18] VITALS (12 sets, daily range): BP systolic 96–142; BP diastolic 53–66; PULSE 66–125; RESP 16–24; TEMP 35.9–36.9; O2SAT 94–100
[2019-12-18] MEDS: PIPERACILLIN-TAZO 3.375 GM/50 ML FROZ.PIGGY IV ×3 (04:12→21:00)
[2019-12-18 05:37] LABS: Add Manual Diff / Slide Review NO; Basophils Absolute Auto 0 /uL (0-100); Eosinophils Absolute Auto 0 /uL (0-450); Hematocrit 33.3 % (36-46); Hemoglobin 11.1 g/dL (12.0-16.0); Lymphocytes Absolute Auto 2200 /uL (1100-4500); Lymphocytes Percent Auto 19.1 % (25-40); Mean Corpuscular HGB Conc 33.2 % (30-36); Mean Corpuscular Hemoglobin 28.4 PG (26-34); Mean Corpuscular Volume 85.6 fL (80-100); Monocytes Absolute Auto 900 /uL (0-900); Neutrophils Absolute Auto 8500 /uL (1500-7000); Neutrophils Percent Auto 72.9 % (50-75); Platelet Count 313 X10^3/uL (150-400); Red Blood Cell Count 3.89 X10^6/uL (4.0-5.2); White Blood Cell Count 11.7 X10^3/uL (4.5-11.0)
[2019-12-18 05:40] LABS: Prothrombin Time 11.7 SECONDS (10.1-12.7)
[2019-12-18 05:43] LABS: PTT Partial Thromboplastin Tim 35 SECONDS (26.4-36.2)
[2019-12-18 05:48] LABS: Alanine Aminotransferase 22 IU/L (<35); Albumin 2.8 g/dL (3.5-5.0); Alkaline Phosphatase 73 U/L (38-126); Aspartate Aminotransferase 25 IU/L (14-36); BUN Creatinine Ratio 22.2 (6-22); Bilirubin Total 0.2 mg/dL (0.2-1.3); Bilirubin Unconjugated 0.1 mg/dL (0.0-1.1); Blood Urea Nitrogen 20 mg/dL (7-17); Calcium 7.9 mg/dL (8.4-10.2); Carbon Dioxide 28 mmol/L (22-32); Chloride 100 mmol/L (98-107); Estimated Glomerular Filt Rate 59.9 mL/min (>60); Globulin 2.9 g/dL (1.7-4.1); Glucose 118 mg/dL (80-110); HEMOLYSIS < 15 (0-50); Potassium 3.9 mmol/L (3.4-5.1); Sodium 133 mmol/L (137-145); Total Protein 5.7 g/dL (6.3-8.2)
[2019-12-18 05:59] LABS: NT-proBNP (BNP-Adult 18+) 6420 pg/mL (<450)
[2019-12-18] MEDS: PANTOPRAZOLE 20 MG TABLET PO (06:20)
[2019-12-18 06:27] LABS: Troponin I 0.164 ng/mL (0.01-0.034)
[2019-12-18] MEDS: ALBUTEROL 2.5 MG/3 ML NEB (ADULT) INH (09:05)
[2019-12-18] MEDS: ENOXAPARIN 60 MG/0.6 ML SYRINGE 50 MG SUBCUT ×2 (09:25→20:59)
[2019-12-18] MEDS: METOPROLOL ER 25 MG TABLET PO (09:26)
[2019-12-18] MEDS: BENZONATATE 100 MG CAPSULE PO (09:27)
[2019-12-18] MEDS: MAG HYDROX/ALUM/SIMETH 30 ML UDC PO (09:28)
[2019-12-18] MEDS: METOPROLOL IR 25 MG TABLET PO (11:16)
--- NOTE | 2019-12-18 15:54 | PM.PN.1 ---
Subjective Subjective Date Patient Seen: 12/18/19 Interval history: Patient is a 84-year-old female admitted to the hospital with acute respiratory failure. Patient continues to complain of pain with swallowing. It is unclear whether she is having chest pain or not. She denies any shortness of breath. She has no productive cough. She denies any shortness of breath. Patient remains in atrial fibrillation. Her rate is been poorly controlled. This new diagnosis. Exam Vital Signs (past 8 hours): - 12/18/19 08:30 12/18/19 09:06 12/18/19 09:26 Temperature 98.4 F Pulse Rate 80 125 H 122 H Respiratory Rate 23 24 Blood Pressure 130/60 Pulse Oximetry 100 100 12/18/19 14:15 Temperature 97.4 F L Pulse Rate 102 H Respiratory Rate 24 Blood Pressure 96/57 L Pulse Oximetry 94 Oxygen Delivery Method Nasal Cannula Oxygen Flow Rate 2 Narrative Exam Narrative: Elderly female resting comfortably in no obvious distress Lungs: Decreased breath sounds but clear to auscultation Cardiac exam: Irregularly irregular normal S1-S2 Abdomen: Soft nontender nondistended, no hepatosplenomegaly Extremities: 1 to 2+ edema Objective Labs Result Diagrams: 12/18/19 05:10 12/18/19 05:10 Labs: Laboratory Results - last 24 hr 12/18/19 12/18/19 12/18/19 05:10 05:10 05:10 WBC 11.7 H RBC 3.89 L Hgb 11.1 L Hct 33.3 L MCV 85.6 MCH 28.4 MCHC 33.2 RDW 15.0 H Plt Count 313 Neut % (Auto) 72.9 Lymph % (Auto) 19.1 L [place] % (Auto) 8.0 Eos % (Auto) 0.0 L Baso % (Auto) 0.0 Neut # (Auto) 8500 H Lymph # (Auto) 2200 [place] # (Auto) 900 Eos # (Auto) 0 Baso # (Auto) 0 PT 11.7 INR 1.0 APTT 35 D Sodium 133 L Potassium 3.9 Chloride 100 Carbon Dioxide 28 BUN 20 H Creatinine 0.90 Estimated GFR 59.9 L BUN/Creatinine Ratio 22.2 H Glucose 118 H Calcium 7.9 L Magnesium 2.0 Total Bilirubin 0.2 Conjugated Bilirubin 0.0 Unconjugated Bilirubin 0.1 AST 25 ALT 22 Alkaline Phosphatase 73 Troponin I NT-Pro-B Natriuret Pep Total Protein 5.7 L Albumin 2.8 L Globulin 2.9 Albumin/Globulin Ratio 1.0 12/18/19 05:10 WBC RBC Hgb Hct MCV MCH MCHC RDW Plt Count Neut % (Auto) Lymph % (Auto) [place] % (Auto) Eos % (Auto) Baso % (Auto) Neut # (Auto) Lymph # (Auto) [place] # (Auto) Eos # (Auto) Baso # (Auto) PT INR APTT Sodium Potassium Chloride Carbon Dioxide BUN Creatinine Estimated GFR BUN/Creatinine Ratio Glucose Calcium Magnesium Total Bilirubin Conjugated Bilirubin Unconjugated Bilirubin AST ALT Alkaline Phosphatase Troponin I 0.164 H* NT-Pro-B Natriuret Pep 6420 H Total Protein Albumin Globulin Albumin/Globulin Ratio Assessment & Plan Assessment & Plan narrative: Assessment & Plan narrative: impression 1. acute respiratory failure - patient presents with acute pulmonary emboli, currently on Lovenox - patient also has a history of asthma, and pneumonia - patient will remain on Lovenox, will guaiac her stool, and follow closely 2. acute pulmonary emboli, present on admission - CONTINUE LOVENOX, will defer long-term anticoagulation at this time - patient had a dark stool, will guaiac her stool, if there is evidence of guaiac-positive stool will ask GI to evaluate to rule out the possibility of a GI bleed -no evidence of bleeding, no further dark stool, patient is constipated, doubt GI bleed 3. atrial fibrillation, with a rapid ventricular response rate, new - Patient remains in AFib with rapid rate -await cardiac echo -continue metoprolol 50 bid 4. Elevated Troponin -may represent Type 2 Myocardial infarction -patient reports pain with swallowing, dysphagia, but with language barrier unsure if this is not chest pain equivalent -Trop's trending upward -check lipids, start statin -start Asa -continue lovenox -consult cardiology -control heart rate 4. anemia, present on admission - will obtain guaiacs stool and follow labs to rule out GI bleed - the patient received 2 units of packed RBCs with improvement of blood count - WILL CONTINUE PROTON PUMP INHIBITOR - hiatal hernia noted on CT, patient complains of dysphagia, may require EGD at some point 5. hyponatremia, present on admission will continue to follow 6. acute kidney injury, improved 7. interstitial lung disease, present on admission Quality VTE Deep Vein Thrombosis/Pulmonary Embolism Present on Admission: No
--- NOTE | 2019-12-18 16:20 | PT-IP ANOTE ---
Contacted pt at 1600 for PT. Pt stated - with granddaughter providing translation - that she had just returned from the toilet and was still feeling short of breath and tired. Verified with this pt that we could check on her in the morning and she agreed with that plan.
[2019-12-18 16:28] LABS: Cholesterol 154 mg/dL (140-199); HDL Cholesterol 43 mg/dL (40-60); LDL Cholesterol Calculated 84 mg/dL (<100); Triglycerides 137 mg/dL (35-150)
[2019-12-18 16:43] LABS: Troponin I 0.126 ng/mL (0.01-0.034)
[2019-12-18] MEDS: FUROSEMIDE 20 MG/2 ML VIAL IV (17:57)
--- NOTE | 2019-12-18 18:12 | PC.NURSE ---
1700- Dr. Stone aware of triponin result and findings on assesment of lungs. Patient is requiring 2liter cannula to maintain saturation of 92%. Patient remains mostly in NSR with intermitted short runs of AFIB/RVR. Orders rec. Will monitor.
[2019-12-18] MEDS: ALBUTEROL/IPRATROPIUM 3 ML AMPUL INH (18:25)
[2019-12-18] MEDS: METOPROLOL ER 50 MG TABLET PO (20:59)
[2019-12-19] VITALS (12 sets, daily range): BP systolic 85–128; BP diastolic 51–62; PULSE 62–80; RESP 18–27; TEMP 36.3–37.3; O2SAT 95–99
[2019-12-19] MEDS: SODIUM CHLORIDE 0.9% FLUSH 10 ML IV ×2 (04:46→08:29)
[2019-12-19] MEDS: PIPERACILLIN-TAZO 3.375 GM/50 ML FROZ.PIGGY IV ×2 (04:46→11:42)
[2019-12-19 05:09] LABS: Add Manual Diff / Slide Review NO; Basophils Absolute Auto 100 /uL (0-100); Basophils Percent Auto 0.6 % (0-2); Eosinophils Absolute Auto 400 /uL (0-450); Eosinophils Percent Auto 3.4 % (2-4); Hematocrit 36.5 % (36-46); Hemoglobin 12.1 g/dL (12.0-16.0); Lymphocytes Absolute Auto 2600 /uL (1100-4500); Lymphocytes Percent Auto 20.2 % (25-40); Mean Corpuscular HGB Conc 33.1 % (30-36); Mean Corpuscular Hemoglobin 28.3 PG (26-34); Mean Corpuscular Volume 85.5 fL (80-100); Monocytes Absolute Auto 900 /uL (0-900); Monocytes Percent Auto 7.2 % (3-14); Neutrophils Absolute Auto 8600 /uL (1500-7000); Neutrophils Percent Auto 68.6 % (50-75); Platelet Count 322 X10^3/uL (150-400); Red Blood Cell Count 4.27 X10^6/uL (4.0-5.2); Red Cell Distribution Width 15.7 % (11.6-14.8); White Blood Cell Count 12.6 X10^3/uL (4.5-11.0)
[2019-12-19 05:16] LABS: Alanine Aminotransferase 33 IU/L (<35); Alkaline Phosphatase 64 U/L (38-126); Aspartate Aminotransferase 35 IU/L (14-36); Bilirubin Total 0.3 mg/dL (0.2-1.3); Bilirubin Unconjugated 0.2 mg/dL (0.0-1.1); Blood Urea Nitrogen 18 mg/dL (7-17); Carbon Dioxide 37 mmol/L (22-32); Chloride 92 mmol/L (98-107); Estimated Glomerular Filt Rate 59.9 mL/min (>60); Globulin 3.1 g/dL (1.7-4.1); Glucose 124 mg/dL (80-110); HEMOLYSIS < 15 (0-50); Magnesium 1.8 mg/dL (1.6-2.3); Potassium 3.3 mmol/L (3.4-5.1); Sodium 134 mmol/L (137-145); Total Protein 6.1 g/dL (6.3-8.2)
[2019-12-19 05:27] LABS: Troponin I 0.077 ng/mL (0.01-0.034)
[2019-12-19] MEDS: PANTOPRAZOLE 20 MG TABLET PO (06:27)
--- NOTE | 2019-12-19 06:46 | PC.NURSE ---
Regional Sales Associate Note-Patient continues to have brief episodes A-fib RVR up to 120 after activity, getting up to BSC, resolves after resting. Denies chest pain or dyspnea. Loose cough persists, declines offer of cough medication, crackles with intermittent rhonchi/wheeze. SpO2 >92% on 1L.
[2019-12-19] MEDS: ALBUTEROL/IPRATROPIUM 3 ML AMPUL INH (07:20)
[2019-12-19] MEDS: ASPIRIN 325 MG TABLET PO (08:29)
[2019-12-19] MEDS: ENOXAPARIN 60 MG/0.6 ML SYRINGE 50 MG SUBCUT (08:29)
[2019-12-19] MEDS: FUROSEMIDE 20 MG/2 ML VIAL IV (08:29)
[2019-12-19] MEDS: METOPROLOL ER 50 MG TABLET PO ×2 (08:29→20:22)
--- NOTE | 2019-12-19 09:42 | PT.IPTN ---
Current Diagnoses Pneumonia, unspecified organism (12/16/19) Physical Therapy Treatment Note M2 PT-IP Current Condition Start: 12/17/19 17:05 Freq: NEEDED Status: Active Protocol: Document 12/17/19 15:48 AB (Rec: 12/17/19 17:22 AB [id number]) Physical Therapy Current Condition Current Condition Evaluation Date 12/17/19 Treatment Diagnosis PE; sepsis; PNA; generalized weakness Onset Date 12/16/2019 Precautions Other Precautions O2 sat M3 PT-IP Subjective Start: 12/17/19 17:05 Freq: NEEDED Status: Active Protocol: Document 12/19/19 08:52 LJ (Rec: 12/19/19 09:42 LJ [id number]) Subjective Physical Therapy Visit Type Type Treatment Note Visit Start Time 08:52 Visit Stop Time 09:13 Total Visit Minutes 21 Number of ELECTRICIAN'S ASSISTANT Visits 1 Physical Therapy Visit Comments Patient Comments family in room with pt to assists with translation M4 PT-IP Mobility and Gait Start: 12/17/19 17:05 Freq: NEEDED Status: Active Protocol: Document 12/19/19 08:52 LJ (Rec: 12/19/19 09:42 LJ [id number]) PT-Bed Mobility Assessment Supine to Sit Supine to Sit Standby Assistance,Head of Bed Elevated Sit to Supine Sit to Supine Standby Assistance Scooting Scooting to Edge of Bed Standby Assistance Scooting Up and Down in Bed Standby Assistance PT-Transfer Assessment Sit to and From Stand Sit to and from Stand Standby Assistance Equipment Transfer Assistive Device Front Wheeled Walker Transfers Transfer Destination Toilet Transfer Technique ambulated using FWW Transfer Ability Level of Assist Contact Guard Assistance, Minimal Assistance,1 Person Assistance,Use of Upper Extremities Comments Mobility Comments Pt SBA for bed mobility with head of bed elevated. Needed to use toilet. O2 at 92% RA Gait Assessment Gait Gait Assistance Required: Contact Guard Assist,Minimum Assistance Distance (Feet) 40 Able to Maintain Weight Bearing Status Yes During Gait Assistive Devices Assistive Device Front Wheeled Walker Orthotic/Prosthetic Devices or Brace: No Gait Deviations General Gait Pattern Flexed Trunk Factors Limiting Gait Function Factors Limiting Gait Function Decreased Activity Tolerance, Poor Safety Awareness, Respiratory Distress Comments Gait Comments Pt refused gait belt but after using toilet requested arm hold assist for ambulation back to bed via 1 lap around room. M5 PT-IP Objective Assessments Start: 12/17/19 17:05 Freq: NEEDED Status: Active Protocol: Document 12/17/19 15:48 AB (Rec: 12/17/19 17:22 AB [id number]) Orientation Orientation/Cognition Level of Alertness Alert Orientation Name Safety Awareness Decreased Safety Awareness Comments pt speaks sanya only Gross Range of Motion Lower Extremity ROM Assessment Within Functional Limits Strength Lower Extremity Strength Assessment Within Functional Limits Muscle Tone Muscle Tone WNL Yes M6 PT-IP Treatment Start: 12/17/19 17:05 Freq: NEEDED Status: Active Protocol: Document 12/19/19 08:52 LJ (Rec: 12/19/19 09:42 LJ [id number]) Physical Therapy Treatment Education Education Provided Safety M7 PT-IP Assessment and Plan Start: 12/17/19 17:05 Freq: NEEDED Status: Active Protocol: Document 12/19/19 08:52 LJ (Rec: 12/19/19 09:42 LJ [id number]) PT Summary Assessment and Plan Potential Rehabilitation Potential Fair Status of Condition at Evaluation Evolving Summary Impairments Pain,ROM,Strength,Balance, Coordination,Sensation,Tone, Cognition,Bed Mobility, Transfers,Gait,Activity Tolerance Assessment Summary Pt requires SBA-CGA for mobility. Complains of lightheadedness during ambulation requesting armhold assist during ambulation with FWW 1 lap around the room. Pt returned to bed SBA. Refused deep breathing techniques indicating that it made her cough. Goals Bed Mobility Goal Independent Transfer Goal Independent,Front Wheeled Walker Gait Goal Independent,Front Wheel Walker Other Goals to improve ambulation without AD ~ 200 ft SBA Days to Meet Goals 5 Frequency of Treatment Frequency Of Treatment Once a Day Treatment Plan Physical Therapy Treatment Plan Bed Mobility Training,Transfer Training,Gait Training, Therapeutic Exercise,Balance Retraining,Discharge Planning, Neuromuscular Re-ed, Coordination Retraining Other Recommendations and Next Treatment ambulation using FWW/ without Focus AD when appropriate Recommendations To Nursing Amount of Assist Needed 1 Person Assist Discharge Recommendations PT Discharge Recommendations Home with 04/05 Assist Transportation Needs at Discharge Private Vehicle
--- NOTE | 2019-12-19 10:39 | OT.IPNOTE ---
Spoke to pt's grandson and pt regarding OT needs. Pt's grandson having difficulty understanding therapist and having to use [employer] translate, from [place]ian to [place],to talk to him regarding OT needs for pt. At this time pt quickly tires and best to focus on PT needs for now. When pt medically stable, pt will have assist at home from her family if needed. Therefore discharge pt from OT services as pt will continue PT for mobility and activity tolerance needs. Spoke to nursing and also agreed for pt to just have PT at this time.
[2019-12-19] MEDS: DIGOXIN 500 MCG/2 ML AMPUL 250 MCG IV ×2 (11:42→20:01)
--- NOTE | 2019-12-19 14:25 | PM.PN.1 ---
Subjective Subjective Date Patient Seen: 12/19/19 Interval history: THE PATIENT IS AN 84-YEAR-OLD FEMALE ADMITTED TO THE HOSPITAL FOR RESPIRATORY FAILURE SECONDARY TO acute pulmonary emboli and pneumonia. Patient has a history of asthma, she continues to cough. She complained of dysphagia but reports her pain is better. She is in atrial fibrillation and her rate is still somewhat difficult to control when ambulating. Patient through her nephew wonders how long she will need to take the Lovenox injection Exam Vital Signs (past 8 hours): - 12/19/19 07:21 12/19/19 08:00 12/19/19 11:42 Temperature 99.1 F Pulse Rate 67 74 66 Respiratory Rate 18 20 Blood Pressure 128/62 Pulse Oximetry 97 96 12/19/19 12:00 Temperature 97.9 F Pulse Rate 72 Respiratory Rate 20 Blood Pressure 85/51 L Pulse Oximetry 99 Oxygen Delivery Method Room Air Oxygen Flow Rate 0 Narrative Exam Narrative: Pleasant female resting comfortably in no obvious distress Lungs: Decreased breath sounds with bilateral bibasilar rhonchi Cardiac exam: Tachycardic irregularly irregular normal S1-S2 with a 3/6 systolic ejection murmur Abdomen: Soft nontender nondistended Extremities: No edema Skin: Dry skin Objective Labs Result Diagrams: 12/19/19 04:44 12/19/19 04:44 Labs: Laboratory Results - last 24 hr 12/18/19 12/18/19 12/19/19 13:23 13:23 04:44 WBC 12.6 H RBC 4.27 Hgb 12.1 Hct 36.5 MCV 85.5 MCH 28.3 MCHC 33.1 RDW 15.7 H Plt Count 322 Neut % (Auto) 68.6 Lymph % (Auto) 20.2 L [place] % (Auto) 7.2 Eos % (Auto) 3.4 Baso % (Auto) 0.6 Neut # (Auto) 8600 H Lymph # (Auto) 2600 [place] # (Auto) 900 Eos # (Auto) 400 Baso # (Auto) 100 Sodium Potassium Chloride Carbon Dioxide BUN Creatinine Estimated GFR BUN/Creatinine Ratio Glucose Calcium Magnesium Total Bilirubin Conjugated Bilirubin Unconjugated Bilirubin AST ALT Alkaline Phosphatase Troponin I 0.126 H* Total Protein Albumin Globulin Albumin/Globulin Ratio Triglycerides 137 Cholesterol 154 LDL Cholesterol, Calc 84 HDL Cholesterol 43 12/19/19 12/19/19 04:44 04:44 WBC RBC Hgb Hct MCV MCH MCHC RDW Plt Count Neut % (Auto) Lymph % (Auto) [place] % (Auto) Eos % (Auto) Baso % (Auto) Neut # (Auto) Lymph # (Auto) [place] # (Auto) Eos # (Auto) Baso # (Auto) Sodium 134 L Potassium 3.3 L Chloride 92 L Carbon Dioxide 37 H BUN 18 H Creatinine 0.90 Estimated GFR 59.9 L BUN/Creatinine Ratio 20.0 Glucose 124 H Calcium 8.0 L Magnesium 1.8 Total Bilirubin 0.3 Conjugated Bilirubin 0.0 Unconjugated Bilirubin 0.2 AST 35 ALT 33 Alkaline Phosphatase 64 Troponin I 0.077 H Total Protein 6.1 L Albumin 3.0 L Globulin 3.1 Albumin/Globulin Ratio 1.0 Triglycerides Cholesterol LDL Cholesterol, Calc HDL Cholesterol Assessment & Plan Assessment & Plan narrative: Impression 1. 84-year-old female admitted to the hospital for acute respiratory failure which is multifactorial -patient presented with bilateral pulmonary embolus -initially treated with Lovenox 50 mg subcu b.i.d., she will be switched to Xarelto 15 mg twice daily -patient is no longer hypoxic 2. Paroxysmal atrial fibrillation, acute -heart rate still suboptimally controlled -patient on metoprolol 50 b.i.d. -added digoxin 0.125 daily -patient anticoagulated with Xarelto for PE 3. Acute congestive heart failure with normal ejection fraction -The ejection fraction is estimated to be 65-70%. There is moderate tricuspid regurgitation. The right ventricular systolic pressure is estimated to be at least 43 mmHg based on an estimated right atrial pressure of 3 mm Hg. -patient received Lasix 20 mg twice -she has had improvement in her oxygenation -given low blood pressure will discontinue Lasix 4. Elevated troponin -suspect demand ischemia, doubt type 2 myocardial infarction 5. Dysphagia, chronic -improved on question PPI -upper GI barium swallow scheduled for tomorrow 6. Asthma Continue nebulizers 7. Pneumonia, present on admission -will switch IV antibiotics to oral at this time Disposition anticipate discharge home once her heart rate is controlled and the results of her barium study has been completed Quality VTE Deep Vein Thrombosis/Pulmonary Embolism Present on Admission: No
[2019-12-19] MEDS: RIVAROXABAN 10 MG TABLET 15 MG PO (16:31)
[2019-12-19] MEDS: POTASSIUM CHLORIDE 20 MEQ TAB PO (16:32)
--- NOTE | 2019-12-19 23:40 | PC.NURSE ---
Patient had a small amount of bright red bloody sputum. Unable to send to lab. Notified UMBERTO Baugh. Instructed to let him know if there is any more bloody sputum.
[2019-12-20] MEDS: guaiFENesin Solution 100 MG/5 ML UDC PO (00:22)
[2019-12-20 01:00] VITALS: BP 103/63; PULSE 69; RESP 37; TEMP 36.3; O2SAT 93
[2019-12-20 03:06] VITALS: BP 103/83; PULSE 63
[2019-12-20] MEDS: DIGOXIN 500 MCG/2 ML AMPUL 250 MCG IV (03:06)
[2019-12-20] MEDS: SODIUM CHLORIDE 0.9% FLUSH 10 ML IV ×2 (03:07→08:47)
[2019-12-20 05:02] VITALS: BP 122/58; PULSE 62; RESP 18; TEMP 36.8; O2SAT 93
[2019-12-20 05:10] LABS: Add Manual Diff / Slide Review NO; Basophils Absolute Auto 100 /uL (0-100); Basophils Percent Auto 0.8 % (0-2); Eosinophils Absolute Auto 1600 /uL (0-450); Eosinophils Percent Auto 12.3 % (2-4); Hematocrit 39.3 % (36-46); Hemoglobin 13.2 g/dL (12.0-16.0); Lymphocytes Absolute Auto 3100 /uL (1100-4500); Lymphocytes Percent Auto 23.9 % (25-40); Mean Corpuscular HGB Conc 33.5 % (30-36); Mean Corpuscular Hemoglobin 28.5 PG (26-34); Mean Corpuscular Volume 85.1 fL (80-100); Monocytes Absolute Auto 900 /uL (0-900); Monocytes Percent Auto 7.2 % (3-14); Neutrophils Absolute Auto 7300 /uL (1500-7000); Neutrophils Percent Auto 55.8 % (50-75); Platelet Count 337 X10^3/uL (150-400); Red Blood Cell Count 4.62 X10^6/uL (4.0-5.2); Red Cell Distribution Width 15.1 % (11.6-14.8); White Blood Cell Count 13.1 X10^3/uL (4.5-11.0)
[2019-12-20 05:20] LABS: BUN Creatinine Ratio 21.3 (6-22); Blood Urea Nitrogen 17 mg/dL (7-17); Calcium 8.5 mg/dL (8.4-10.2); Carbon Dioxide 34 mmol/L (22-32); Chloride 91 mmol/L (98-107); Estimated Glomerular Filt Rate > 60.0 mL/min (>60); Glucose 94 mg/dL (80-110); HEMOLYSIS < 15 (0-50); Potassium 3.7 mmol/L (3.4-5.1); Sodium 132 mmol/L (137-145)
[2019-12-20] MEDS: METOPROLOL ER 50 MG TABLET PO (08:46)
[2019-12-20] MEDS: POTASSIUM CHLORIDE 20 MEQ TAB PO (08:46)
[2019-12-20] MEDS: PANTOPRAZOLE 20 MG TABLET PO (08:46)
[2019-12-20] MEDS: levoFLOXacin 500 MG TABLET PO (08:46)
[2019-12-20] MEDS: RIVAROXABAN 10 MG TABLET 15 MG PO (08:46)
[2019-12-20 09:00] VITALS: BP 132/60; PULSE 64; RESP 29; TEMP 36.3; O2SAT 92
--- NOTE | 2019-12-20 10:29 | PT.IPTN ---
Current Diagnoses Other pulmonary embolism without acute cor pulmonale (12/16/19) Physical Therapy Treatment Note M2 PT-IP Current Condition Start: 12/17/19 17:05 Freq: NEEDED Status: Active Protocol: Document 12/17/19 15:48 AB (Rec: 12/17/19 17:22 AB [id number]) Physical Therapy Current Condition Current Condition Evaluation Date 12/17/19 Treatment Diagnosis PE; sepsis; PNA; generalized weakness Onset Date 12/16/2019 Precautions Other Precautions O2 sat M3 PT-IP Subjective Start: 12/17/19 17:05 Freq: NEEDED Status: Active Protocol: Document 12/20/19 10:29 AB (Rec: 12/20/19 12:17 AB [id number]) Subjective Physical Therapy Visit Type Type Treatment Note Visit Start Time 10:29 Visit Stop Time 10:52 Total Visit Minutes 23 Number of SORTING SUPERVISOR Visits 0 Physical Therapy Visit Comments Patient Comments requested to use the toilet M4 PT-IP Mobility and Gait Start: 12/17/19 17:05 Freq: NEEDED Status: Active Protocol: Document 12/20/19 10:29 AB (Rec: 12/20/19 12:17 AB [id number]) PT-Bed Mobility Assessment Supine to Sit Supine to Sit Standby Assistance,Head of Bed Elevated PT-Transfer Assessment Sit to and From Stand Sit to and from Stand Contact Guard Assistance, Minimal Assistance,1 Person Assistance,Use of Upper Extremities Equipment Transfer Assistive Device Gait Belt,Front Wheeled Walker Orthotic/Prosthetic Devices or Brace: No Transfers Transfer Destination Toilet Transfer Technique ambulated using FWW Transfer Ability Level of Assist Contact Guard Assistance, Minimal Assistance,1 Person Assistance,Use of Upper Extremities Comments Mobility Comments pt completed supine to sit SBA with HOB elevated. completed sit to stand CGA to min A and cues. ambulated to the toilet using FWW CGA to min A. completed sit to stand from the toilet using grab bar min A and cues. was able to maintain standing using FWW for support CGA while managing pants. c/o dizziness after using the toilet but was able to walk to the chair using FWW min A and cues. BP : 134/66 . positioned on the chair. call light and table placed within reach. Gait Assessment Gait Gait Assistance Required: Contact Guard Assist,Minimum Assistance Distance (Feet) 10 Able to Maintain Weight Bearing Status Yes During Gait Assistive Devices Assistive Device Gait Belt,Front Wheeled Walker Orthotic/Prosthetic Devices or Brace: No Gait Deviations General Gait Pattern Decreased Stride Length, Decreased Feet Clearance Factors Limiting Gait Function Factors Limiting Gait Function Decreased Activity Tolerance, Poor Balance,Poor Safety Awareness,Respiratory Distress Comments Gait Comments pls refer to mobility section M5 PT-IP Objective Assessments Start: 12/17/19 17:05 Freq: NEEDED Status: Active Protocol: Document 12/17/19 15:48 AB (Rec: 12/17/19 17:22 AB [id number]) Orientation Orientation/Cognition Level of Alertness Alert Orientation Name Safety Awareness Decreased Safety Awareness Comments pt speaks sanya only Gross Range of Motion Lower Extremity ROM Assessment Within Functional Limits Strength Lower Extremity Strength Assessment Within Functional Limits Muscle Tone Muscle Tone WNL Yes M6 PT-IP Treatment Start: 12/17/19 17:05 Freq: NEEDED Status: Active Protocol: Document 12/20/19 10:29 AB (Rec: 12/20/19 12:17 AB [id number]) Physical Therapy Treatment Education Education Provided Safety M7 PT-IP Assessment and Plan Start: 12/17/19 17:05 Freq: NEEDED Status: Active Protocol: Document 12/20/19 10:29 AB (Rec: 12/20/19 12:17 AB [id number]) PT Summary Assessment and Plan Potential Rehabilitation Potential Good Summary Impairments Pain,ROM,Strength,Balance, Coordination,Sensation, Cognition,Bed Mobility, Transfers,Gait,Activity Tolerance Progress Towards Goals Slow Progress due to Activity Tolerance Assessment Summary pt requiring CGA to min A with mobility and will have family 04/05 to assist her at home. pt may go home when medically stable. Goals Bed Mobility Goal Independent Transfer Goal Independent,Front Wheeled Walker Gait Goal Independent,Front Wheel Walker Gait Distance 150 Other Goals to improve ambulation without AD ~ 200 ft SBA Days to Meet Goals 5 Frequency of Treatment Frequency Of Treatment Once a Day Treatment Plan Physical Therapy Treatment Plan Bed Mobility Training,Transfer Training,Gait Training, Therapeutic Exercise,Balance Retraining,Discharge Planning, Neuromuscular Re-ed, Coordination Retraining Other Recommendations and Next Treatment ambulation using FWW/ without Focus AD when appropriate Recommendations To Nursing Amount of Assist Needed 1 Person Assist Discharge Recommendations PT Discharge Recommendations Home with 04/05 Assist Transportation Needs at Discharge Private Vehicle
[2019-12-20 12:05] VITALS: BP 120/56; BP 132/59; BP 135/60; PULSE 66; PULSE 69; PULSE 72
[2019-12-20 12:37] VITALS: BP 122/64; PULSE 62; RESP 22; TEMP 36.2; O2SAT 96
--- NOTE | 2019-12-20 15:42 | PC.NURSE ---
Patient discharged via private vehicle with two grandchildren. Discharge instructions given to granddaughter. IVs removed, telemetry off. Belongings were packed and taken to car by family. Patient received new prescriptions and was instructed to follow up with PCP within one week.
--- NOTE | 2019-12-21 17:51 | PM.DS.1 ---
History of Present Illness History of Present Illness Date Patient Seen: 12/20/19 Chief complaint: difficulty breathing - asthma Narrative: Ms.Surjit Velasquez is an 84-year-old Eastern female with a history significant for asthma and a history of having tuberculosis that has been treated and cleared presents to the hospital with progressive shortness of breath. History is difficult due to language barrier, telephonic offset press assistant used in the emergency department catheter information which is impeded as the patient speaks a dialtect of M[place], not formal Mello. Family is at bedside to assist with patient interview. Reportedly the patient has had difficulty breathing for 1 month. She was seen 1 month ago at the emergency department at [facility] and released. The patient continued to have shortness of breath that became progressive and associated with chest pain with deep inspiration. She has a positive cough productive for yellow sputum. Family also notes that the patient had an episode nausea vomiting with subjective fevers. On pharmacy review the patient has had multiple episodes of 5 day course of prednisone has had a course of Levaquin and routinely uses ProAir inhaler. The patient has had no travel nor exposure to CoVID-19. The patient denies headaches or dizziness has sustained no falls. She has no nasal congestion or sore throat. She has pleuritic chest pain and had shortness of breath as above. She denies abdominal pain but did have episode of nausea vomiting today. Per family there is no change bowel or bladder habits. Patient is sedentary but no history of cancer, travel or long trips. Upon arrival to the ER the patient is afebrile with temperature of 99? degrees. She has a heart rate of 120 blood pressure 117/59, respirations of 24 saturating 95% on room air. CTs obtained which finds: Discharge Providers Provider Date of admission: 12/16/19 00:34 Discharge Date: 12/20/19 Primary care physician: Enzo Blood Consults: 12/16/19 05:33 Consult to Respiratory Therapy Evaluate & Treat Comment: Pneumonia, asthma, bilateral pulmonary emboli Physician Instructions: Evaluate and treat 12/17/19 10:00 Consult to Occupational Therapy Evaluate & Treat Comment: Physician Instructions: Evaluate and treat Consult to Physical Therapy Evaluate & Treat Comment: Physician Instructions: Evaluate and Treat Discharge provider: Beryl Stone MD Summary Hospital Course Discharge Diagnosis: 1. Acute respiratory failure 2. Bilateral pulmonary emboli 3. Pneumonia 4. Asthma 5. Paroxysmal atrial fibrillation 6. Acute diastolic heart failure preserved ejection fraction 7. Dysphagia most likely related to GERD 8. Hyponatremia Hospital Course: The patient is an 84-year-old female who was admitted to the hospital for acute shortness of breath. CT angio confirmed pulmonary emboli. Patient was also found to have pneumonia. The patient has a history of asthma as well. She underwent transthoracic echocardiogram which confirmed a normal ejection fraction with no right ventricular dysfunction. The patient developed atrial fibrillation. She had a rapid heart rate. She had mild elevation of her troponin but not felt to have myocardial infarction. Patient complained of dysphagia. She did receive Protonix with that she had resolution of her symptoms. Patient initially was hypoxic which ultimately improved. She was noted to have a dark stool that was not quiet. The patient had no further stools during her hospital stay. Patient made slow but steady improvement. The patient completed her antibiotic course during the hospital stay. She was deemed appropriate for discharge. Range were made for her to be discharged home. Status at Discharge Cognitive/behavioral status at discharge: oriented Functional status at discharge: independent ambulation Overall status at discharge: patient is back to baseline Time Spent with Patient Time spent: Less than 30 minutes Exam Vital Signs (past 8 hours): Oxygen Delivery Method Room Air Oxygen Flow Rate 0 Narrative Exam Narrative: Pleasant female in no acute distress Lungs: Decreased breath sounds but clear to auscultation Cardiac exam: Tachycardic irregularly irregular normal S1-S2 Abdomen soft nontender nondistended Extremity: No edema Objective Labs Result Diagrams: 12/20/19 04:46 12/20/19 04:46 Discharge Plan Discharge Plan Patient Disposition: Home Discharge orders & Medications Prescriptions: New metoprolol succinate 50 mg Tablet Extended Release 24 Hr 50 mg PO BID Qty: 60 RF: 0 pantoprazole 20 mg Tablet,Delayed Release (Dr/Ec) 20 mg PO 0700 Qty: 30 RF: 0 digoxin 125 mcg (0.125 mg) Tablet 0.125 mg PO DAILY@1700 Qty: 30 RF: 0 Xarelto 10 mg Tablet 15 mg PO BIDWM Qty: 20 RF: 0 Continued albuterol sulfate [Ventolin HFA] 90 MCG/PUFF HFA aerosol inhaler 2 puff INH Q4HP PRN (Reason: Wheezing) Qty: 0 RF: 0 multivitamin [Multiple Vitamins] 1 EACH tablet 1 tab PO QDAY Qty: 0 RF: 0 Discontinued aspirin 81 MG tablet,delayed release (DR/EC) 81 mg PO QDAY Qty: 0 RF: 0 Follow up/Referrals: Enzo Blood [Primary Care Provider] - Diet/Activity/Treatments Diet comment: her usual Activity: as tolerated Other treatments: patient should complete xeralto, then decrease to 20mg daily of xeralto for a total of three months. Patient needs to f/u with her PCP in one week for further evaluation Skin/Wound/Dressing Care Report to your healthcare provider any signs of infection, such as:: chills, fever Visit Report/Discharge Packet Instructions: DI for Pneumonia -- Adult, DI for Pulmonary Embolism, DI for Atrial Fibrillation, Rivaroxaban, Digoxin, Metoprolol Visit Report Forms: Patient Portal/API, Stroke Signs & Symptoms Discharge Data Primary Care Provider: Enzo Blood Discharges patient from system. Discharge Date/Time: 12/20/19 15:53 Quality VTE Deep Vein Thrombosis/Pulmonary Embolism Present on Admission: No
== END 2019-12-20 15:53 | disposition home or self-care (01) | DRG 175 ==
LOC: ED 12-16 00:29 → ICU 12-16 02:05
PROVIDERS: Internal Medicine; Admitting Provider Nurse Practitioner Adult Health; Emergency Provider Emergency Medicine; PCP Family Medicine Sports Medicine; Referring Provider Emergency Medicine; Visit Provider Nurse Practitioner Adult Health
DX: I26.99 Other pulmonary embolism without acute cor pulmonale (principal); J96.01 Acute respiratory failure with hypoxia; J18.9 Pneumonia, unspecified organism; I50.31 Acute diastolic (congestive) heart failure; N17.9 Acute kidney failure, unspecified; I24.8 Other forms of acute ischemic heart disease; J45.901 Unspecified asthma with (acute) exacerbation; E87.1 Hypo-osmolality and hyponatremia; I48.0 Paroxysmal atrial fibrillation; D64.9 Anemia, unspecified; R13.19 Other dysphagia; K21.9 Gastro-esophageal reflux disease without esophagitis
CPT/HCPCS: 36415; 36430; 36600; 71045; 71275; 80048; 80053; 80061; 80076; 81003; 81015; 82550; 82805; 83540; 83550; 83605; 83735; 83880; 84145; 84484; 85014; 85018; 85025; 85379; 85610; 85730; 86850; 86900; 86901; 87040; 87070; 87086; 87205; 87502; 87633; 87797; 93005; 93010; 93306; 94150; 94640; 94760; 96365; 96367; 96372; 96375; 97116; 97162; 97530; 99284; P9016; J0696; J1160; J1650; J1940; J2543; J2930; J7613; Q9957; Q9967

== ENCOUNTER 2020-01-13 18:57 | Emergency (ER) | payer MEDICARE, MEDICAID, SELFPAY ==
[2019-12-16 05:30] VITALS: BMI 20.4
[2020-01-13 18:57] VITALS: BP 165/68; PULSE 76; RESP 25; TEMP 37.4; O2SAT 89
[2020-01-13 19:00] VITALS: O2SAT 95
--- NOTE | 2020-01-13 19:22 | ED_ITS ---
HPI - SOB/Dyspnea General Chief Complaint: Shortness of Breath/Dyspnea Stated Complaint: cough, trouble breathing, neck pain Time Seen by Provider: 01/13/20 19:16 Source: patient and family Mode of arrival: Wheelchair Limitations: no limitations History of Present Illness HPI Narrative: 84-year-old female nonsmoker with history of hypertension, atrial fibrillation and asthma presents with family and a chief complaint of increasing shortness of breath with subjective fever cough and left-sided chest pain for the past day or so. She has not been out and about, denies any travel or exposure to persons known to be positive for COVID-19. She denies GI symptoms such as nausea, vomiting or diarrhea. She denies dysuria, frequency or urgency. MD Complaint: shortness of breath, cough and chest pain Onset (ago): day(s) Severity: moderate Consistency/Duration: constant Relieving factors: nothing Exacerbating factors: nothing Known history of: asthma Associated symptoms: chest pain, pain with inspiration, fever, cough and wheezing Treatment prior to arrival: none Related Data Home oxygen amount: none Home Medications Medication Instructions Recorded Confirmed albuterol sulfate [Ventolin HFA] 2 puff INH Q4HP PRN #0 08/19/17 12/16/19 multivitamin [Multiple Vitamins] 1 tab PO QDAY #0 11/20/17 12/16/19 Previous Rx's Medication Instructions Recorded digoxin 0.125 mg PO DAILY@1700 #30 tab 12/20/19 metoprolol succinate 50 mg PO BID #60 tab 12/20/19 pantoprazole 20 mg PO 0700 #30 tab 12/20/19 rivaroxaban [Xarelto] 15 mg PO BIDWM #20 tab 12/20/19 azithromycin See Rx Instructions .ROUTE 01/13/20 .COMPLEX #6 tab Allergies Allergy/AdvReac Type Severity Reaction Status Date / Time No Known Drug Allergies Allergy Verified 12/17/19 08:23 Review of Systems Constitutional Constitutional: Denies chills, Denies fatigue, Reports fever(s), Denies frequent falls, Denies lethargy and Denies weakness Eyes Eyes: Denies change in vision, Denies eye discharge, Denies irritation and Denies loss of vision ENT Ears, Nose, Mouth, and Throat: Denies change in voice, Denies dizziness, Denies neck pain, Denies sore throat and Denies throat swelling Cardiovascular Cardiovascular: Reports chest pain, Denies irregular heart rhythm, Denies lightheadedness, Denies palpitations, Reports dyspnea, Denies dyspnea on exertion and Denies orthopnea Respiratory Respiratory: Reports cough, Reports dyspnea, Denies dyspnea on exertion and Reports wheezing Gastrointestinal Gastrointestinal: Denies abdominal pain, Denies change in bowel habits, Denies diarrhea, Denies nausea and Denies vomiting Genitourinary Genitourinary: Denies hematuria, Denies flank pain, Denies urinary incontinence and Denies urinary urgency Musculoskeletal Musculoskeletal: Denies back pain, Denies muscle weakness, Denies neck pain, Denies numbness and Denies tingling Integumentary/Breasts Skin/Breast: Denies pruritus, Denies erythema, Denies rash and Denies wounds Neurologic Neurologic: Denies behavioral changes, Denies confusion, Denies dizziness, Denies frequent falls, Denies loss of vision, Denies numbness, Denies tingling and Denies weakness Psychiatric Psychiatric: Denies anxiety, Denies behavioral changes, Denies confusion, Denies depression, Denies homicidal ideation and Denies suicidal ideation Endocrine Endocrine: Denies fatigue, Denies flushing and Denies palpitations Hematologic/Lymphatic Hematologic/Lymphatic: Denies easy bruising Allergic/Immunologic Allergic/Immunologic: Denies urticaria, Denies throat swelling and Reports wheezing Patient History Medical History Asthma (Acute) History of pneumonia (Acute) Surgical History History of cholecystectomy (Acute) Social History household members: family Smoking Status: Never smoker Smoking Status: Never smoker alcohol intake frequency: 0-2 drinks per day Substance Use Type: does not use Exam Narrative Exam Narrative: GENERAL: 84 year old patient appears stated age. Well-nourish ed, well-developed patient, in mild distress. HEAD: Atraumatic. Normocephalic. EYES: Pupils equal round and reactive. Extraocular motions intact. No scleral icterus. No injection or drainage. ENT: Nose without bleeding, purulent drainage. Throat without erythema, tonsillar hypertrophy or exudate. Airway patent. NECK: Trachea midline. Non tender CARDIOVASCULAR: Regular rate and rhythm without murmurs, gallops, or rubs. RESPIRATORY: Prolonged expiratory phase with expiratory wheeze in all wan, left greater than right GASTROINTESTINAL: Abdomen soft, non-tender, nondistended. EXTREMITIES: No edema or joint tenderness. BACK: Nontender without deformity or crepitance. No flank tenderness. NEURO: AOx3. SKIN: No rash or erythema of visible areas Initial Vital Signs Initial Vital Signs: Vital Signs Temperature 99.3 F 01/13/20 18:57 Pulse Rate 76 01/13/20 18:57 Respiratory Rate 25 H 01/13/20 18:57 Blood Pressure 165/68 H 01/13/20 18:57 Pulse Oximetry 89 L 01/13/20 18:57 Course Orders Ordered: ED Orders 01/13/20 19:38 EKG-12 Lead Stat 01/13/20 19:39 XR chest 1V Stat 01/13/20 20:04 C-Reactive Protein Quant Stat Complete Blood Count AUTO DIFF Stat Comprehensive Metabolic Panel Stat Ferritin Stat Lactate Dehydrogenase Stat NT-proBNP (BNP-Adult 18+) Stat Procalcitonin Stat Troponin & CK Cardiac Panel Stat 01/13/20 20:44 CT chest wo con Stat Discontinued Medications Albuterol (Ventolin Hfa Prepack) 1 box MISC SEEINSTR ONE Stop: 01/13/20 19:36 Last Admin: 01/13/20 19:41 Dose: 1 box Documented by: KOJO Vital Signs Vital signs: Vital Signs - 8 hr 01/13/20 18:57 01/13/20 19:00 01/13/20 19:41 Temperature 99.3 F Pulse Rate 76 74 Respiratory Rate 25 H 24 Blood Pressure 165/68 H Blood Pressure [Left Arm] Pulse Oximetry 89 L 95 99 01/13/20 20:00 01/13/20 22:35 Temperature Pulse Rate 73 68 Respiratory Rate 24 24 Blood Pressure Blood Pressure [Left Arm] 129/56 L 130/88 Pulse Oximetry 99 93 MDM - SOB/Dyspnea Lab Data Result diagrams: 01/13/20 20:04 01/13/20 20:04 Labs: Lab Results 01/13/20 01/13/20 01/13/20 Range/Units 20:04 20:04 20:04 WBC 11.3 H (4.5-11.0) X10^3/uL RBC 4.50 (4.0-5.2) X10^6/uL Hgb 12.8 (12.0-16.0) g/dL Hct 38.2 (36-46) % MCV 85.0 (80-100) fL MCH 28.4 (26-34) PG MCHC 33.5 (30-36) % RDW 14.6 (11.6-14.8) % Plt Count 242 (150-400) X10^3/uL Neut % (Auto) 51.2 (50-75) % Lymph % (Auto) 29.3 (25-40) % [place] % (Auto) 13.0 (3-14) % Eos % (Auto) 5.1 H (2-4) % Baso % (Auto) 1.4 (0-2) % Neut # (Auto) 5800 (7697-9952) /uL Lymph # (Auto) 3300 (0342-2273) /uL [place] # (Auto) 1500 H (0-900) /uL Eos # (Auto) 600 H (0-450) /uL Baso # (Auto) 200 H (0-100) /uL Sodium 132 L (137-145) mmol/L Potassium 4.5 (3.4-5.1) mmol/L Chloride 96 L (98-107) mmol/L Carbon Dioxide 29 (22-32) mmol/L BUN 13 (7-17) mg/dL Creatinine 0.83 (0.52-1.04) mg/dL Estimated GFR > 60.0 (>60) mL/min BUN/Creatinine Ratio 15.7 (6-22) Glucose 111 H (80-110) mg/dL Calcium 9.5 (8.4-10.2) mg/dL Ferritin (11-264) ng/mL Total Bilirubin 0.4 (0.2-1.3) mg/dL AST 31 (14-36) IU/L ALT 19 (<35) IU/L Alkaline Phosphatase 97 (38-126) U/L Lactate Dehydrogenase 441 (313-618) U/L Total Creatine Kinase (30-135) U/L CK-MB (CK-2) CK-MB (CK-2) Rel Index Troponin I (0.01-0.034) ng/mL C-Reactive Protein 4.1 H (<1.0) mg/dL NT-Pro-B Natriuret Pep (<450) pg/mL Total Protein 8.0 (6.3-8.2) g/dL Albumin 4.1 (3.5-5.0) g/dL Globulin 3.9 (1.7-4.1) g/dL Albumin/Globulin Ratio 1.1 (1.0-2.8) Procalcitonin (<0.5) ng/mL 01/13/20 01/13/20 Range/Units 20:04 20:04 WBC (4.5-11.0) X10^3/uL RBC (4.0-5.2) X10^6/uL Hgb (12.0-16.0) g/dL Hct (36-46) % MCV (80-100) fL MCH (26-34) PG MCHC (30-36) % RDW (11.6-14.8) % Plt Count (150-400) X10^3/uL Neut % (Auto) (50-75) % Lymph % (Auto) (25-40) % [place] % (Auto) (3-14) % Eos % (Auto) (2-4) % Baso % (Auto) (0-2) % Neut # (Auto) (9618-3325) /uL Lymph # (Auto) (9427-2673) /uL [place] # (Auto) (0-900) /uL Eos # (Auto) (0-450) /uL Baso # (Auto) (0-100) /uL Sodium (137-145) mmol/L Potassium (3.4-5.1) mmol/L Chloride (98-107) mmol/L Carbon Dioxide (22-32) mmol/L BUN (7-17) mg/dL Creatinine (0.52-1.04) mg/dL Estimated GFR (>60) mL/min BUN/Creatinine Ratio (6-22) Glucose (80-110) mg/dL Calcium (8.4-10.2) mg/dL Ferritin 136 (11-264) ng/mL Total Bilirubin (0.2-1.3) mg/dL AST (14-36) IU/L ALT (<35) IU/L Alkaline Phosphatase (38-126) U/L Lactate Dehydrogenase (313-618) U/L Total Creatine Kinase < 20 L (30-135) U/L CK-MB (CK-2) TNP CK-MB (CK-2) Rel Index TNP Troponin I < 0.012 (0.01-0.034) ng/mL C-Reactive Protein (<1.0) mg/dL NT-Pro-B Natriuret Pep 595 H (<450) pg/mL Total Protein (6.3-8.2) g/dL Albumin (3.5-5.0) g/dL Globulin (1.7-4.1) g/dL Albumin/Globulin Ratio (1.0-2.8) Procalcitonin < 0.05 (<0.5) ng/mL ECG Data Attestation: I personally reviewed and interpreted this ECG as follows: MDM Narrative Medical decision making narrative: Multiple etiologies for patient's symptoms considered including: [Asthma exacerbation versus community-acquired pneumonia versus atypical pneumonia versus viral pneumonia versus other] Patient's symptoms improved or duration of stay with above-stated therapies. Findings and discharge diagnosis discussed with patient/family followed by verbalization of understanding Return precautions discussed with patient/family whom verbalize understanding. Discharge Plan Departure Patient Disposition: Home Clinical Impression: Atypical pneumonia Asthma with exacerbation Qualifiers: Asthma severity: mild Asthma persistence: intermittent Qualified Code(s): J45.21 - Mild intermittent asthma with (acute) exacerbation Discharge Date/Time: 01/13/20 22:48 Instructions: DI for Asthma -- Adult, DI for Atypical Pneumonia Activity Restrictions/Additional Instructions: *You have been diagnosed with [asthma exacerbation and possibly atypical pneumonia] *What to do: *Take medications as directed *Follow up with your primary care provider in 2-3 days, call for an appointment. Let them know you were seen in the Emergency Department and that we ask that you be seen in follow up *Return to ER if you should have any new, worsening or concerning symptoms *You have been diagnosed with [ atypical pneumonia, which based on your symptoms, labs and imaging is suspicious for coronavirus] *What to do: * per recommendations from the CDC and the [facility] Department of Health * stay home except to get medical care. Restrict activities outside your home, except for getting medical care. Do not go to work, school, or public areas. Avoid using public transportation, ride sharing, or taxis. * separate yourself from other people in your home. * call ahead before visiting your doctor * Wear a facemask * Cover your coughs and sneezes * Clean your hands often * Avoid sharing household items * Clean all high-touch services every day * Monitor your symptoms and seek prompt medical attention if your illness is worsening, particularly with difficulty in breathing. Discussed continuing home isolation * for individuals with symptoms who are confirmed or suspected cases of COVID-19 and are directed to care for themselves at home, discontinue home isolation under the following conditions: 1. At least 72 hours have passed since recovery, defined as resolution of fever without the use of fever reducing medications, and improvement in respiratory symptoms (cough, shortness of breath) AND, 2. At least 7 days have passed since symptoms 1st appeared Individuals with laboratory confirmed COVID-19 who have not had any symptoms may discontinue home isolation when at least 7 days have passed since the date of their 1st COVID-19 diagnostic test and have had no subsequent illness Prescriptions: New azithromycin 250 mg tablet See Rx Instructions .ROUTE .COMPLEX Qty: 6 RF: 0 No Action albuterol sulfate [Ventolin HFA] 90 MCG/PUFF HFA aerosol inhaler 2 puff INH Q4HP PRN (Reason: Wheezing) Qty: 0 RF: 0 multivitamin [Multiple Vitamins] 1 EACH tablet 1 tab PO QDAY Qty: 0 RF: 0 metoprolol succinate 50 mg Tablet Extended Release 24 Hr 50 mg PO BID Qty: 60 RF: 0 pantoprazole 20 mg Tablet,Delayed Release (Dr/Ec) 20 mg PO 0700 Qty: 30 RF: 0 digoxin 125 mcg (0.125 mg) Tablet 0.125 mg PO DAILY@1700 Qty: 30 RF: 0 Xarelto 10 mg Tablet 15 mg PO BIDWM Qty: 20 RF: 0 Referrals: [facility] [Primary Care Provider] -
--- NOTE | 2020-01-13 19:39 | DI.RAD.S_ITS ---
PROCEDURE: XR CHEST 1V INDICATIONS: fall, trauma, preop TECHNIQUE: One view of the chest was acquired. COMPARISON: [facility], , CHEST 1 VIEW, 11/20/2017, 7:51. [facility], MARISA, XR CHEST 1V, 12/15/2019, 19:28. FINDINGS: Surgical changes and devices: None. Lungs and pleura: Multifocal wispy and alveolar opacities throughout the right lung without significant change since the prior study. The lungs are overall hyperinflated. Coarse interstitial markings present diffusely. Blunting of the right costophrenic angle, likely scarring. No pneumothorax. Mediastinum: Mediastinal contours appear normal. Heart size is normal. Bones and chest wall: No suspicious bony lesions. Overlying soft tissues appear unremarkable. IMPRESSION: 1. Hyperinflation and chronic coarse interstitial markings consistent with underlying lung disease. 2. Multifocal right lung alveolar opacity is without significant change since prior study. Dictated by: Alivia Denson M.D. on 01/13/2020 at 20:17 Approved by: Alivia Denson M.D. on 01/13/2020 at 20:20
[2020-01-13 19:41] VITALS: PULSE 74; RESP 24; O2SAT 99
[2020-01-13] MEDS: ALBUTEROL HFA PREPACK 1 BOX MISC (19:41)
[2020-01-13 20:00] VITALS: BP 129/56; PULSE 73; RESP 24; O2SAT 99
[2020-01-13 20:11] LABS: Add Manual Diff / Slide Review NO; Basophils Absolute Auto 200 /uL (0-100); Basophils Percent Auto 1.4 % (0-2); Eosinophils Absolute Auto 600 /uL (0-450); Eosinophils Percent Auto 5.1 % (2-4); Hematocrit 38.2 % (36-46); Hemoglobin 12.8 g/dL (12.0-16.0); Lymphocytes Absolute Auto 3300 /uL (1100-4500); Lymphocytes Percent Auto 29.3 % (25-40); Mean Corpuscular HGB Conc 33.5 % (30-36); Mean Corpuscular Hemoglobin 28.4 PG (26-34); Monocytes Absolute Auto 1500 /uL (0-900); Neutrophils Absolute Auto 5800 /uL (1500-7000); Neutrophils Percent Auto 51.2 % (50-75); Platelet Count 242 X10^3/uL (150-400); Red Cell Distribution Width 14.6 % (11.6-14.8); White Blood Cell Count 11.3 X10^3/uL (4.5-11.0)
[2020-01-13 20:25] LABS: Creatine Kinase < 20 U/L (30-135); Lactate Dehydrogenase 441 U/L (313-618)
[2020-01-13 20:28] LABS: Alanine Aminotransferase 19 IU/L (<35); Albumin 4.1 g/dL (3.5-5.0); Albumin Globulin Ratio 1.1 (1.0-2.8); Alkaline Phosphatase 97 U/L (38-126); Aspartate Aminotransferase 31 IU/L (14-36); BUN Creatinine Ratio 15.7 (6-22); Bilirubin Total 0.4 mg/dL (0.2-1.3); Blood Urea Nitrogen 13 mg/dL (7-17); C-Reactive Protein Quant 4.1 mg/dL (<1.0); Calcium 9.5 mg/dL (8.4-10.2); Carbon Dioxide 29 mmol/L (22-32); Chloride 96 mmol/L (98-107); Estimated Glomerular Filt Rate > 60.0 mL/min (>60); Globulin 3.9 g/dL (1.7-4.1); Glucose 111 mg/dL (80-110); HEMOLYSIS < 15 (0-50); Potassium 4.5 mmol/L (3.4-5.1); Sodium 132 mmol/L (137-145)
[2020-01-13 20:37] LABS: NT-proBNP (BNP-Adult 18+) 595 pg/mL (<450); Troponin I < 0.012 ng/mL (0.01-0.034)
--- NOTE | 2020-01-13 20:44 | DI.CT.S_ITS ---
PROCEDURE: CT CHEST WO CON INDICATIONS: cough, SOB, wheeze, fever TECHNIQUE: Noncontrast 5 mm thick sections acquired from the pulmonary apices to the posterior costophrenic angles. 1 mm lung window, 5 mm thick coronal and sagittal and 7 mm axial MIP reformats were then acquired. For radiation dose reduction, the following was used: automated exposure control, adjustment of mA and/or kV according to patient size. COMPARISON: None. FINDINGS: Image quality: Excellent. Lungs and pleura: Patchy irregular multifocal alveolar opacities are present in both lungs, right greater than left. There is also mild traction bronchiectasis and diffuse fibrotic reticulation changes in the right upper lobe, right middle lobe, and at the right lung base. Subpleural fibrosis and mild traction bronchiectasis is also seen in in the left upper lobe and peripherally at the posterior medial left lung base. The overall morphology and extent of disease is nearly identical compared to the prior study. No new opacities or pleural effusions. Mediastinum: Heart size is normal. Trace pericardial effusion. Bulky calcified and noncalcified mediastinal and bilateral hilar adenopathy is present. Thoracic aorta and central pulmonary arteries are normal in size. Esophagus is normal in caliber. Small hiatal hernia. Bones and chest wall: No suspicious bony lesions. No vertebral body compression fractures. No axillary or supraclavicular adenopathy by size criteria. Thyroid gland is normal. Abdomen: Visualized upper abdominal solid organs and bowel loops appear normal in the absence of contrast. IMPRESSION: 1. No new pulmonary disease. 2. Compared to one month ago, there is a nearly identical pattern of patchy multifocal alveolar opacities, reticulation, fibrosis suggesting sarcoidosis or usual interstitial pneumonitis. 3. No change to mediastinal and hilar adenopathy. 4. Trace pericardial effusion. 5. Hiatal hernia. Dictated by: Alivia Denson M.D. on 01/13/2020 at 21:24 Approved by: Alivia Denson M.D. on 01/13/2020 at 21:34
[2020-01-13 20:54] LABS: Procalcitonin < 0.05 ng/mL (<0.5)
[2020-01-13 21:00] LABS: Ferritin 136 ng/mL (11-264)
[2020-01-13 22:35] VITALS: BP 130/88; PULSE 68; RESP 24; O2SAT 93
[2020-01-16 08:41] LABS: COVID19 Sendout Not Detected (Not Detected)
== END 2020-01-13 22:48 | disposition home or self-care (01) ==
PROVIDERS: Emergency Provider Emergency Medicine; PCP Family Medicine Sports Medicine
DX: J18.9 Pneumonia, unspecified organism (principal); J45.21 Mild intermittent asthma with (acute) exacerbation; R50.9 Fever, unspecified; R07.9 Chest pain, unspecified; R06.02 Shortness of breath
CPT/HCPCS: 71045; 71250; 80053; 82550; 82728; 83615; 83880; 84145; 84484; 85025; 86140; 87635; 93005; 94640; 99284; 99285